=== PATIENT | female | born 1960 | race Caucasian/White ===

== ENCOUNTER → 2022-05-11 | Outpatient (CLI) | payer OTHER ==
[2022-05-11 14:33] LABS: Basophils # (A) 0.04 X 10*3/uL (0.00-0.10); Basophils % (A) 0.6 %; Eosinophils # (A) 0.44 X 10*3/uL (0.04-0.35); Eosinophils % (A) 6.1 %; HCT 42.4 % (37.2-46.3); HGB 13.3 g/dL (12.0-15.0); Immature Grans, Automated 0.4 %; Lymphocytes # (A) 1.57 X 10*3/uL (0.90-5.00); Lymphocytes % (A) 21.7 %; MCH 29.7 pg (27.0-32.0); MCHC 31.4 g/dL (32.0-37.0); MCV 94.6 fL (80.0-97.0); Mean Platelet Volume 10.6 fL (9.5-12.2); Monocytes # (A) 0.61 X 10*3/uL (0.20-1.00); Monocytes % (A) 8.4 %; NRBC Per 100 WBC 0 /100 WBCS (0.0-0.0); Neutrophils # (A) 4.56 X 10*3/uL (1.80-7.70); Neutrophils % (A) 62.8 %; Platelet Count 289 X 10*3/uL (140-440); RBC 4.48 X 10*6/uL (4.10-5.20); RDW 14.5 % (11.5-14.5); WBC 7.25 X 10*3/uL (4.50-10.00)
[2022-05-11 14:58] LABS: ALT 27 U/L (8-44); AST 21 U/L (13-35); African American GFR (CKD) 44.2 (60.0-200.0); Albumin 4.4 g/dL (3.8-4.9); Albumin/Globulin Ratio 1.77 (1.60-3.17); Alkaline Phosphatase 107 U/L (41-126); BUN/Creat Ratio 18.78 Ratio (12.00-20.00); Blood Urea Nitrogen 27.6 mg/dL (9.0-27.0); Calcium 9.8 mg/dL (8.7-10.3); Carbon Dioxide 23.4 mmol/L (20.0-27.5); Chloride 105 mmol/L (96-109); Chol/HDL Ratio 6.08 Ratio; Globulin 2.5 g/dL (1.6-3.3); Glucose 92 mg/dL (70-110); LDL Cholesterol,Calculated 191.8 mg/dL (0.0-131.0); Non-African American GFR(CKD) 38.1 (60.0-200.0); Potassium 4.7 mmol/L (3.5-5.5); Sodium 142 mmol/L (135-145); Total Protein 6.9 g/dL (6.2-8.2)
== END | disposition home or self-care (01) ==
LOC: LABWHC1 07:23
PROVIDERS: ATTEND Family Medicine
DX: E55.9 Vitamin D deficiency, unspecified (principal); E03.9 Hypothyroidism, unspecified; E78.5 Hyperlipidemia, unspecified; R73.9 Hyperglycemia, unspecified
CPT/HCPCS: 36415; 80053; 80061; 82306; 83036; 84439; 84443; 85025

== ENCOUNTER → 2023-01-23 | Outpatient (CLI) | payer OTHER ==
[2023-01-23 11:31] LABS: Chol/HDL Ratio 3.78 Ratio; LDL Cholesterol,Calculated 97.9 mg/dL (0.0-131.0)
[2023-01-23 11:59] LABS: ALT 56 U/L (8-44); AST 42 U/L (13-35); Albumin 4.5 d/dL (3.8-4.9); Albumin/Globulin Ratio 2.05 Ratio (1.60-3.17); Alkaline Phosphatase 141 U/L (41-126); BUN/Creat Ratio 19.67 Ratio (12.00-20.00); Blood Urea Nitrogen 29.5 mg/dL (9.0-27.0); Calcium 10.3 mg/dL (8.7-10.3); Carbon Dioxide 24.5 mmol/L (21.6-31.8); Chloride 106 mmol/L (96-109); Globulin 2.2 d/dL (1.6-3.3); Glucose 98 mg/dL (70-110); Potassium 5.5 mmol/L (3.5-5.5); Sodium 141 mmol/L (135-145); Total Bilirubin 0.4 mg/dL (0.3-1.2); Total Protein 6.7 d/dL (6.2-8.2)
== END | disposition home or self-care (01) ==
LOC: LABWHC1 07:08
PROVIDERS: ATTEND Family Medicine
DX: E03.9 Hypothyroidism, unspecified (principal); E78.5 Hyperlipidemia, unspecified
CPT/HCPCS: 36415; 80053; 80061; 84439; 84443

== ENCOUNTER → 2023-07-30 | Outpatient (CLI) | payer BC ==
[2023-07-30 12:50] LABS: Basophils # (A) 0.04 X 10*3/uL (0.00-0.10); Basophils % (A) 0.7 %; Eosinophils # (A) 0.44 X 10*3/uL (0.04-0.35); Eosinophils % (A) 7.2 %; HCT 41.9 % (37.2-46.3); HGB 13.6 g/dL (12.0-15.0); Lymphocytes # (A) 1.24 X 10*3/uL (0.90-5.00); Lymphocytes % (A) 20.2 %; MCH 31.1 pg (27.0-32.0); MCHC 32.5 g/dL (32.0-37.0); MCV 95.7 FL (80.0-97.0); Monocytes # (A) 0.52 X 10*3/uL (0.20-1.00); Monocytes % (A) 8.5 %; NRBC Per 100 WBC 0 X 10*3/uL (0.00-0.01); Neutrophils # (A) 3.89 X 10*3/uL (1.80-7.70); Neutrophils % (A) 63.1 %; Platelet Count 242 X 10*3/uL (140-440); RBC 4.38 X 10*6/uL (4.10-5.20); RDW 14.3 % (11.5-14.5); WBC 6.15 X 10*3/uL (4.50-10.00)
[2023-07-30 13:31] LABS: BUN/Creat Ratio 25.27 Ratio (12.00-20.00); Blood Urea Nitrogen 37.9 mg/dL (9.0-27.0); Chol/HDL Ratio 3.66 Ratio; Glucose 98 mg/dL (70-110); LDL Cholesterol,Calculated 80.7 mg/dL (0.0-131.0)
[2023-07-30 13:32] LABS: ALT 33 U/L (8-44); AST 22 U/L (13-35); Albumin 4.4 g/dL (3.8-4.9); Alkaline Phosphatase 126 U/L (41-126); Calcium 9.7 mg/dL (8.7-10.3); Carbon Dioxide 22.5 mmol/L (21.6-31.8); Chloride 105 mmol/L (96-109); Globulin 2.1 g/dL (1.6-3.3); Potassium 5.2 mmol/L (3.5-5.5); Sodium 140 mmol/L (135-145); T4, Free (Free Thyroxine) 1.53 ng/dL (0.80-1.80); Total Bilirubin 0.3 mg/dL (0.3-1.2); Total Protein 6.5 g/dL (6.2-8.2)
== END | disposition home or self-care (01) ==
LOC: LABWHC1 07:01
PROVIDERS: ATTEND Family Medicine
DX: Z00.00 Encounter for general adult medical examination without abnormal findings (principal); E55.9 Vitamin D deficiency, unspecified; E78.5 Hyperlipidemia, unspecified; E03.9 Hypothyroidism, unspecified; I63.9 Cerebral infarction, unspecified
CPT/HCPCS: 36415; 80053; 80061; 82306; 83036; 84439; 84443; 85025

== ENCOUNTER 2023-10-04 09:00 | Day surgery (SDC) | payer BC ==
[2023-10-02 13:10] VITALS: BMI 37.2
[~2023-10-04 09:00] MED LIST: EMPTY BAG 1 BAG with SODIUM CHLORIDE 0.9% 1,000 ML IV SCH
[2023-10-04] MEDS: SODIUM CHLORIDE 0.9% 1,000 ML IV ONE (09:15)
[2023-10-04 09:40] VITALS: RESP 16; TEMP 97.9
[2023-10-04 09:42] LABS: Basophils % (A) 1 %; Eosinophils # (A) 0.4 k/uL (0-0.7); Eosinophils % (A) 6 %; HCT 41.6 % (34.0-46.0); HGB 13.6 gm/dL (11.4-16.0); Lymphocytes # (A) 1.6 k/uL (1.0-4.8); Lymphocytes % (A) 23 %; MCH 30.5 pg (25.0-35.0); MCHC 32.8 g/dL (31.0-37.0); MCV 92.9 fL (80.0-100.0); Mean Platelet Volume 8.2; Monocytes # (A) 0.4 k/uL (0-1.0); Monocytes % (A) 6 %; Neutrophils # (A) 4.4 k/uL (1.3-7.7); Neutrophils % (A) 62 %; Platelet Count 242 k/uL (150-450); RBC 4.48 m/uL (3.80-5.40); WBC 7.1 k/uL (3.8-10.6)
[2023-10-04 09:55] LABS: African American GFR (CKD) 50 (>60 ml/min/1.73 sqM); Anion Gap 10 mmol/L; Blood Urea Nitrogen 38 mg/dL (7-17); Calcium 9.9 mg/dL (8.4-10.2); Carbon Dioxide 19 mmol/L (22-30); Chloride 109 mmol/L (98-107); Glucose 98 mg/dL (74-99); Non-African American GFR(CKD) 44 (>60 ml/min/1.73 sqM); Potassium 4.9 mmol/L (3.5-5.1); Sodium 138 mmol/L (137-145)
[2023-10-04] MEDS ORDERED: VERAPAMIL 2.5 MG/ML 2 ML AMP ONE (10:39)
[2023-10-04] MEDS ORDERED: LIDOCAINE 1% INJ 10MG/ML (20 ML MDV) ONE (10:39)
[2023-10-04] MEDS ORDERED: HEPARIN SODIUM 1,000 UN/ML (10ML VL) ONE (10:39)
[2023-10-04] MEDS: LIDOCAINE 1% INJ 10MG/ML (30 ML VIAL-PF) SQ ONE (10:47)
[2023-10-04] MEDS: MIDAZOLAM 2 MG/2 ML VIAL IVP ONE (10:48)
[2023-10-04] MEDS: VERAPAMIL SYRINGE (5 MG/10 ML) INTRAARTER ONE (10:49)
[2023-10-04] MEDS: HEPARIN SODIUM 1,000 UN/ML (10ML VL) IVP ONE (10:49)
[2023-10-04] MEDS: IOPAMIDOL-250 100ML BTL INTRAARTER ONE (11:02)
--- NOTE | 2023-10-04 11:20 | P.OP ---
Date of Procedure: 10/04/23 Description of Procedure: Preoperative diagnosis: Ihsan 3 peripheral arterial disease bilateral lower extremity Postoperative diagnosis: Same Procedure: Ultrasound-guided left radial artery access Placement of catheter in infrarenal abdominal aorta, selective second order, from radial approach Aortogram with bilateral lower extremity runoffs Moderate conscious sedation with personal monitoring certified RN administration and personal hemodynamic monitoring for 19 minutes Surgeon: Elsa Winslow D.O. EBL: Less than 5 cc IV fluids: See records Urine output: Not measured Drains: None Complications: None immediately apparent Condition: Stable to recovery Operative indication and findings: Patient is 62 a-year-old with peripheral vascular disease. On workup and evaluation was found to have abnormal ABIs prompting recommendations for an angiogram. Risks and benefits including but not limited to bleeding, infection, injury to the vessel, stroke, cardiopulmonary risks and ischemic changes to the extremities were discussed. They seemingly understood this willing to proceed. Procedure in detail: Patient was taken to the special suite and placed in supine position. The left upper extremity was prepped and draped in usual sterile fashion. A preprocedural timeout was performed, all parties were in agreement. Using the ultrasound, the radial artery was identified. The skin overlying was anesthetized with 1% lidocaine plain. The artery was patent without significant calcific disease and a permanent image was stored. Under direct visualization, the artery was accessed and Seldinger technique was used to place a 5 slender sheath. Catheters and wires were then used to selectively place a catheter across the subclavian, into the aortic arch and then selectively in the descending thoracic aorta and down into the abdominal aorta. Aortogram was performed. Catheter was then advanced to the level of the iliac bifurcation. A bilateral lower extremity step-off was performed. After satisfactory images, catheters and wires were removed. The sheath was removed and a TR band was placed. Angiographic interpretation: The aorta appears normal in course and caliber. Visualized portions of the celiac, superior mesenteric and renal arteries appeared patent without significant disease. Bilateral common, internal and external iliac arteries appeared patent without significant disease. The common femoral arteries bilaterally appear patent without significant or obvious disease. On the right, the superficial femoral artery occludes shortly after its takeoff. There is a rich collateral network via the profunda and reconstitution of the popliteal artery at the level of the P1 segment. The popliteal artery and infrapopliteal arteries appear patent. There are 3 vessels at the ankle. On the left, the superficial femoral artery is patent but occludes shortly after its takeoff. Again VA rich collateral network of the profunda, there is reconstitution of the very distal superficial femoral artery. There are evidence of disease and collaterals through the popliteal artery. The below- knee popliteal artery appears patent without significant disease. Infrapopliteal vessels appear patent without significant disease. There is three-vessel at the ankle. Plan - Discharge Summary Discharge Rx Participant: No New Discharge Prescriptions: No Action Levothyroxine Sodium [Synthroid] 112 mcg PO DAILY Aspirin [Adult Low Dose Aspirin EC] 81 mg PO DAILY cilostazoL [Pletal] 100 mg PO BID Lisinopril-Hctz 20-12.5 mg [Zestoretic 20-12.5] 1 tab PO DAILY Discharge Medication List Aspirin [Adult Low Dose Aspirin EC] 81 mg PO DAILY 10/02/23 [History] Levothyroxine Sodium [Synthroid] 112 mcg PO DAILY 10/02/23 [History] Lisinopril-Hctz 20-12.5 mg [Zestoretic 20-12.5] 1 tab PO DAILY 10/02/23 [History] cilostazoL [Pletal] 100 mg PO BID 10/02/23 [History] Follow up Appointment(s)/Referral(s): Elsa Winslow DO [STAFF PHYSICIAN] - 2 Weeks (PLEASE CALL DR PARKS OFFICE ON SATURDAY TO MAKE FOLLOW UP APPOINTMENT (OFFICE IS CLOSED TODAY -SATURDAY)) Patient Instructions/Handouts: Moderate Sedation (DC), Angiogram (DC), After Radial Heart Catheterization (GEN) Activity/Diet/Wound Care/Special Instructions: No driving for two days Ok to shower tomorrow but no baths, pools, lakes, doing dishes by hand for five days. Signs of infection IE: fever, rash, drainage from puncture site, swelling go to ER/doctor for immediate evaluation. Avoid using right wrist/hand to bend, flex, lift greater than 5 lbs for five days. For Heavy Bleeding of puncture site apply firm direct pressure and return to ER. Do not attempt to drive self. low sodium/low fat diet medications as directed by Acute Specialist Discharge Disposition: HOME SELF-CARE
[2023-10-04 14:59] VITALS: BP 145/67; PULSE 80
--- NOTE | 2023-10-07 13:25 | IR ---
EXAMINATION TYPE: IR angio abdominal w runoff DATE OF EXAM: 10/04/2023 COMPARISON: NONE HISTORY: Fluoroscopy time. Fluoroscopy was provided to the referring clinician.
== END 2023-10-04 14:33 | disposition home or self-care (01) ==
LOC: CATHCVL 09:00
PROVIDERS: ATTEND Surgery
DX: I70.213 Atherosclerosis of native arteries of extremities with intermittent claudication, bilateral legs (principal); I10 Essential (primary) hypertension; I65.21 Occlusion and stenosis of right carotid artery; Z79.02 Long term (current) use of antithrombotics/antiplatelets; Z79.82 Long term (current) use of aspirin; Z79.899 Other long term (current) drug therapy
CPT/HCPCS: 36200; 75625; 75716; 76937; 80048; 85025; 99152; C1769 ×2; C1894; J2250; J2001; J1644; Q9966

== ENCOUNTER → 2024-02-12 | Outpatient (CLI) | payer BC, SELFPAY ==
[2024-02-12 11:10] LABS: ALT 32 U/L (8-44); AST 25 U/L (13-35); Albumin 4.4 g/dL (3.8-4.9); Alkaline Phosphatase 121 U/L (41-126); BUN/Creat Ratio 22.29 Ratio (12.00-20.00); Blood Urea Nitrogen 31.2 mg/dL (9.0-27.0); Calcium 9.2 mg/dL (8.7-10.3); Carbon Dioxide 23.7 mmol/L (21.6-31.8); Chloride 104 mmol/L (96-109); Chol/HDL Ratio 3.86 Ratio; Globulin 2.1 g/dL (1.6-3.3); Glucose 85 mg/dL (70-110); LDL Cholesterol,Calculated 91.2 mg/dL (0.0-131.0); Sodium 138 mmol/L (135-145); T4, Free (Free Thyroxine) 1.28 ng/dL (0.80-1.80); Total Bilirubin 0.3 mg/dL (0.3-1.2); Total Protein 6.5 g/dL (6.2-8.2)
== END | disposition home or self-care (01) ==
LOC: LABWHC1 06:54
PROVIDERS: ATTEND Family Medicine
DX: Z00.00 Encounter for general adult medical examination without abnormal findings
CPT/HCPCS: 36415; 80053; 80061; 82306; 82607; 84439; 84443

== ENCOUNTER → 2024-03-27 | Outpatient (CLI) | payer BC ==
--- NOTE | 2024-03-27 15:46 | CA ---
Transthoracic Echo Report Name: Savannah Ospina Age: 63 Gender: F : 1960 Exam Date: 03/27/2024 08:41 Exam Location: [facility] Ht (in): 63 Wt (lb): 212 Ordering Physician: Good Faith DO Attending/Referring Phys: Elsa Winslow DO Machine Cloth Examiner Marie Balderas RDCS Procedure CPT: Indications: I73.9 PERIPHERAL VASCULAR DISEASE, UNSPECIFIED Cardiac Hx: Technical Quality: Fair Contrast 1: Total Dose (mL): Contrast 2: Total Dose (mL): MEASUREMENTS (Male / Female) Normal Values 2D ECHO LV Diastolic Diameter PLAX 3.5 cm 4.2 - 5.9 / 3.9 - 5.3 cm LV Systolic Diameter PLAX 2.4 cm IVS Diastolic Thickness 1.4 cm 0.6 - 1.0 / 0.6 - 0.9 cm LVPW Diastolic Thickness 1.4 cm 0.6 - 1.0 / 0.6 - 0.9 cm LV Relative Wall Thickness 0.8 RV Internal Dim ED PLAX 1.4 cm LA Systolic Diameter LX 3.0 cm 3.0 - 4.0 / 2.7 - 3.8 cm LV Diastolic Volume MOD BP 45.7 cm??? 67 - 155 / 56 - 104 cm??? LV Systolic Volume MOD BP 18.3 cm??? 22 - 58 / 19 - 49 cm??? LV Ejection Fraction MOD BP 60.0 % >= 55 % LV Cardiac Index MOD BP 1232.7 cm???/min???m??? LV Diastolic Volume MOD 4C 47.4 cm??? LV Systolic Volume MOD 4C 17.4 cm??? LV Ejection Fraction MOD 4C 63.3 % LV Cardiac Index MOD 4C 1347.1 cm???/min???m??? LV Diastolic Length 4C 8.2 cm LV Systolic Length 4C 6.5 cm LV Diastolic Volume MOD 2C 40.4 cm??? LV Systolic Volume MOD 2C 18.2 cm??? LV Ejection Fraction MOD 2C 55.0 % LV Cardiac Index MOD 2C 997.9 cm???/min???m??? LV Diastolic Length 2C 7.4 cm LV Systolic Length 2C 7.0 cm M-MODE Aortic Root Diameter MM 3.3 cm LA Systolic Diameter MM 3.2 cm LA Ao Ratio MM 1.0 AV Cusp Separation MM 1.7 cm DOPPLER AV Peak Velocity 183.5 cm/s AV Peak Gradient 13.5 mmHg AV Mean Velocity 128.3 cm/s AV Mean Gradient 7.9 mmHg AV Velocity Time Integral 37.9 cm LVOT Peak Velocity 186.1 cm/s LVOT Peak Gradient 13.8 mmHg LVOT Velocity Time Integral 42.0 cm Mitral E Point Velocity 63.7 cm/s Mitral A Point Velocity 84.2 cm/s Mitral E to A Ratio 0.8 MV Deceleration Time 263.7 ms MV E' Velocity 6.7 cm/s Mitral E to MV E' Ratio 9.5 TR Peak Velocity 172.1 cm/s TR Peak Gradient 11.9 mmHg Right Ventricular Systolic Press 16.9 mmHg FINDINGS Left Ventricle Left ventricular ejection fraction is estimated at 60-65 %. Moderately increased septal wall thickness. Moderately increased posterior wall thickness. Normal left ventricular systolic function with no obvious regional wall motion abnormalities. Left ventricular cavity size normal. Increased LVOT velocity, 1.86 m/s. Right Ventricle Normal right ventricular size. Right ventricular systolic pressure within normal limits. Right Atrium Normal right atrial size. Left Atrium Normal left atrial size. Mitral Valve Structurally normal mitral valve. Trace mitral regurgitation. No mitral stenosis. Mitral annular calcification. Aortic Valve Trileaflet aortic valve. No aortic valve stenosis or regurgitation. Tricuspid Valve Structurally normal tricuspid valve. Trace to mild tricuspid regurgitation. No tricuspid stenosis. Pulmonic Valve Structurally normal pulmonic valve. Trace pulmonic regurgitation. No pulmonic stenosis. Pericardium No pericardial or pleural effusion. Aorta Normal size aortic root and proximal ascending aorta. CONCLUSIONS Left ventricular ejection fraction 60-65% Moderately increased left ventricular wall thickness Mild LVOT gradient maximum velocity 1.8 beers per second RVSP 17 Trace mitral regurgitation Mild mitral calcification Trace to mild tricuspid regurgitation Previewed by: Dr. Twin Whatley DO (Electronically Signed) Final Date: 27 March 2024 15:45
--- NOTE | 2024-03-27 16:09 | CA ---
Exercise Stress Test Report Name: Savannah Ospina Exam Date: 03/27/2024 10:30 Exam Location: [facility] Ht (in): 63 Wt (lb): 212 BSA: 1.98 Ordering Phys: Good Faith DO Referring Phys: Elsa Winslow DO Technologist: Miguelito Woodward Age: 63 Gender: F : 1960 Procedure CPT: Indications: I73.9 PERIPHERAL VASCULAR DISEASE, UNSPECIFIED ICD-10 Codes: Patient History: HYPERCHOLESTEROLEMIA, FAMILY HX OF HEART DISEASE, PRIOR SMOKER Medications: LISINOPRIL Meds past 24 hrs: Pretest Chest Pain: STRESS TEST Yuri Protocol Exercise Duration (min:sec): 05:[address] Depressions (mm): Angina Score: Enriquez Score: Resting HR (bpm): 91 Peak HR (bpm): 134 Resting BP (mmHg): 138 / 91 Peak BP (mmHg): 180 / 75 MPHR: 157 Target HR: 133 % MPHR: 85 METS: 6.6 Total Dose: Peak Dose: Atropine: Double Product: 28189 BP Response: Stress Termination: MAX EXERTION/TARGET HR Stress Symptoms: NO SYMPTOMS Stress Summary: ECG ANALYSIS Resting ECG: Stress ECG: CONCLUSIONS Patient underwent exercise stress EKG with a Yuri protocol treadmill stress test. Patient exercised into Stage 2 for a total of 5 minutes and 11 seconds reaching a total of 6.6 METS. Patient's maximum heart rate was 134 which represented 85% age- predicted maximum heart rate. Stress EKG findings: At baseline patient's EKG showed normal sinus rhythm, normal axis, no significant ST or T wave abnormalities. At peak exercise, EKG showed no significant change from baseline. Conclusions: 1. Normal EKG response to exercise without evidence of inducible ischemia. 2. Fair exercise capacity. Dr. Twin Whatley DO (Electronically Signed) Final Date: 27 March 2024 16:08
== END | disposition home or self-care (01) ==
LOC: RADECHMAIN 08:21
PROVIDERS: ATTEND Family Medicine
DX: I73.9 Peripheral vascular disease, unspecified
CPT/HCPCS: 93017; 93306

== ENCOUNTER → 2024-04-29 | Outpatient (CLI) | payer BC ==
[2024-04-29 12:41] LABS: INR 0.8 (<1.2); Partial Thromboplastin Time 23.6 sec (22.0-30.0); Prothrombin Time 9.5 sec (10.0-12.5)
[2024-04-29 15:12] LABS: Basophils # (A) 0.03 X 10*3/uL (0.00-0.10); Basophils % (A) 0.3 %; Eosinophils # (A) 0.45 X 10*3/uL (0.04-0.35); Eosinophils % (A) 5.2 %; HGB 13.2 g/dL (12.0-15.0); Lymphocytes # (A) 1.72 X 10*3/uL (0.90-5.00); Lymphocytes % (A) 19.7 %; MCH 31.7 pg (27.0-32.0); MCHC 32.2 g/dL (32.0-37.0); MCV 98.3 FL (80.0-97.0); Mean Platelet Volume 10.3 FL (9.5-12.2); NRBC Per 100 WBC 0 X 10*3/uL (0.00-0.01); Neutrophils # (A) 5.77 X 10*3/uL (1.80-7.70); Neutrophils % (A) 66.3 %; Platelet Count 298 X 10*3/uL (140-440); RBC 4.17 X 10*6/uL (4.10-5.20); RDW 13.9 % (11.5-14.5); WBC 8.71 X 10*3/uL (4.50-10.00)
== END | disposition home or self-care (01) ==
LOC: LABPAT 11:58
PROVIDERS: ATTEND Surgery
DX: Z01.818 Encounter for other preprocedural examination (principal)
CPT/HCPCS: 36415; 85025; 85610; 85730; 86850; 86900; 86901; 93005

== ENCOUNTER 2024-04-30 05:41 | Inpatient (IN) | payer BC ==
[2024-04-30] MEDS ORDERED: LIDOCAINE 1% (10MG/ML) FOR IV START INTRADERMA PRN (05:46)
[2024-04-30] MEDS ORDERED: MIDAZOLAM 2 MG/2 ML VIAL IV PRN (05:46)
[2024-04-30] MEDS ORDERED: fentaNYL (PF) 50 MCG/ML 2 ML AMP IVP PRN (05:46)
[2024-04-30] MEDS ORDERED: HYDROmorphone 0.5 MG/0.5 ML SYRINGE IVP PRN (05:46)
[2024-04-30] MEDS: IV FLUID CONTINUATION 1,000 ML IV ONE ×2 (06:30→06:45)
[2024-04-30] MEDS: LACTATED RINGERS 1,000 ML IV SCH (06:30)
[2024-04-30] MEDS: ONDANSETRON 4 MG/2 ML VIAL IVP ONE (06:51)
[2024-04-30] MEDS: DEXAMETHASONE SOD PHOSPHATE 4 MG/ML 1 ML VIAL IV ONE (06:51)
--- NOTE | 2024-04-30 07:15 | P.HPIHPCON ---
History of Present Illness H&P Date: 04/30/24 Savannah is a 63-year-old female with lifestyle limiting claudication that is severe and has femoral-popliteal disease that initially was attempted to be revascularized via endovascular methods which was unsuccessful. Due to this she was recommended undergo a bypass. She presents today for this. She denies any changes since her last visit in the office Consent for Procedure: I have explained the operation/procedure to the patient, including the risks, benefits, side effects, alternative therapies (including not receiving the proposed treatment or service), the likelihood of the patient achieving his/her goals, and potential recuperation problems for the procedure/sedation/analgesia, as well as any blood products, if indicated. I also explained to the patient the risks, benefits and side effects of the alternatives, as well as the risks related to not receiving the proposed procedure, care, treatment, or services. Past Medical History Past Medical History: Hyperlipidemia, Hypertension, Osteoarthritis (OA), Thyroid Disorder, Vascular Disorder Additional Past Medical History / Comment(s): PVD History of Any Multi-Drug Resistant Organisms: None Reported Additional Past Surgical History / Comment(s): CALLY. CAROTID ENDARTERECTOMY Past Anesthesia/Blood Transfusion Reactions: No Reported Reaction Smoking Status: Former smoker - Past Family History Mother Family Medical History: No Reported History Brother(s) Additional Family Medical History / Comment(s): QUAD CABG Medications and Allergies Home Medications Medication Instructions Recorded Confirmed Type Aspirin [Adult Low Dose Aspirin EC] 81 mg PO DAILY 10/02/23 04/27/24 History Levothyroxine Sodium [Synthroid] 112 mcg PO DAILY 10/02/23 04/27/24 History Lisinopril-Hctz 20-12.5 mg 1 tab PO HS 10/02/23 04/27/24 History [Zestoretic 20-12.5] cilostazoL [Pletal] 100 mg PO BID 10/02/23 04/27/24 History Atorvastatin [Lipitor] 80 mg PO HS 10/29/23 04/27/24 History Ibuprofen [Advil] 200 mg PO DAILY PRN 10/29/23 04/27/24 History Dextroamphetamine/Amphetamine 30 mg PO DAILY 04/27/24 04/27/24 History [Adderall] Allergies Allergy/AdvReac Type Severity Reaction Status Date / Time No Known Allergies Allergy Verified 04/30/24 06:02 Surgical - Exam Vital Signs Temp Pulse Resp BP Pulse Ox 97.9 F 89 16 157/84 96 04/30/24 06:14 04/30/24 06:14 04/30/24 06:14 04/30/24 06:14 04/30/24 06:14 General is a pleasant cooperative obese female in no acute distress. HEENT is n ormocephalic, atraumatic, extraocular motion intact. Heart appears regular in rate and rhythm. Lungs are clear. Abdomen is soft obese nontender. Extremities show no clubbing, cyanosis or edema. Bilateral feet are warm and dry. Assessment and Plan Assessment: Lifestyle limiting claudication and peripheral arterial disease Obesity Plan: We will go forward with the plan today for a left femoral to below-knee popliteal bypass with CryoVein. Risks and benefits of the procedure were discussed with the patient previously including but not limited to bleeding, infection, injury to the vessel, cardiopulmonary concerns. She seemingly understands and is willing to proceed.
--- NOTE | 2024-04-30 07:16 | P.ANPRN ---
Procedure Note - Anesthesia - Invasive Line Left Arterial Line Time Out Performed: Yes Date of Procedure: 04/30/24 Time of Procedure: 07:00 Location of Patient: PreOp Preparation: Sterile Prep Arterial Line Location: Radial Ultrasound Used: Yes Purpose - Visualization and Identification of Vasculature: Yes Image Stored and Saved: Yes Narrative: Invasive line placement per sterile protocol utilized. AttemptX1
[2024-04-30] MEDS ORDERED: NEOSTIGMINE 1 MG/ML 10 ML VIAL ONE (07:26)
[2024-04-30] MEDS ORDERED: LIDOCAINE 1% INJ 10MG/ML (20 ML MDV) ONE (07:26)
[2024-04-30] MEDS ORDERED: HEPARIN SODIUM,PORCINE 10,000 UNIT/ML 1 ML VIAL ONE (07:26)
[2024-04-30] MEDS ORDERED: GLYCOPYRROLATE 0.2 MG/ML 2 ML VIAL ONE (07:26)
[2024-04-30] MEDS ORDERED: fentaNYL (PF) 50 MCG/ML 2 ML AMP ONE (07:26)
[2024-04-30] MEDS ORDERED: PHENYLEPHRINE 10 MG/ML VIAL ONE (07:26)
[2024-04-30] MEDS ORDERED: MIDAZOLAM 2 MG/2 ML VIAL ONE (07:26)
[2024-04-30] MEDS ORDERED: CALCIUM CHLORIDE 100 MG/ML 10 ML SYRINGE ONE (07:26)
[2024-04-30] MEDS ORDERED: SODIUM BICARB 8.4% 50 ML SYR (1 MEQ/ML) ONE (07:26)
[2024-04-30] MEDS ORDERED: PROPOFOL 10 MG/ML 20 ML VIAL IV ONE (07:26)
[2024-04-30] MEDS ORDERED: ROCURONIUM 10 MG/ML (5 ML VIAL) IV ONE (07:26)
[2024-04-30] MEDS ORDERED: SUCCINYLCHOLINE CHLORIDE 200 MG/10 ML VIAL IV ONE (07:26)
[2024-04-30 07:32] LABS: African American GFR (CKD) 55 (>60 ml/min/1.73 sqM); Anion Gap 10 mmol/L; Blood Urea Nitrogen 34 mg/dL (7-17); Calcium 9.3 mg/dL (8.4-10.2); Carbon Dioxide 19 mmol/L (22-30); Chloride 108 mmol/L (98-107); Glucose 90 mg/dL (74-99); Non-African American GFR(CKD) 47 (>60 ml/min/1.73 sqM); Sodium 137 mmol/L (137-145)
[2024-04-30 07:43] LABS: Potassium 5.2 mmol/L (3.5-5.1)
[2024-04-30] MEDS: SODIUM CHLORIDE 0.9% 1,000 ML IV ONE ×2 (08:18)
[2024-04-30] MEDS: HEPARIN SODIUM,PORCINE 10,000 UNIT in SODIUM CHLORIDE 0.9% 1,000 ML IRRIGATION ONE ×2 (08:23→08:26)
[2024-04-30] MEDS: ceFAZolin 4,000 MG in SODIUM CHLORIDE 0.9% 1,000 ML IRRIGATION ONE (08:24)
[2024-04-30] MEDS: THROMBIN (BOVINE) 5,000 UNIT VIAL TOPICAL ONE ×2 (08:56)
[2024-04-30] MEDS: SODIUM CHLORIDE 0.9% 50 ML with ceFAZolin 2,000 MG IV ONE (11:31)
[2024-04-30] MEDS: hydrALAZINE HCL 20 MG/ML 1 ML VIAL IVP STA (13:07)
--- NOTE | 2024-04-30 13:48 | P.OP ---
Date of Procedure: 04/30/24 Description of Procedure: I preoperative diagnosis: Lifestyle-limiting peripheral vascular disease, femoral-popliteal occlusive disease Postoperative diagnosis: Same Procedure: Left femoral cutdown and endarterectomy Left below-knee popliteal cutdown and endarterectomy Left femoral to distal popliteal bypass with CryoVein Surgeon: Elsa Winslow D.O. Corporate Compliance Director: Obdulia EBL: 50 cc IV fluids: See records Drains: None, Prevena incisional wound vacs Urine output: 425 cc Complications: None Condition: Stable, extubated in the OR to PACU Operative indication and findings: The patient is a 63-year-old female with lifestyle limiting claudication worse in her left leg. Initial attempts were made for endovascular revascularization were unsuccessful therefore a bypass was recommended.. Risks and benefits were discussed including but not limited to bleeding, infection, limb loss, heart attack, poor wound healing and . The patient seemingly understood and was willing to proceed. Procedure in detail: Patient taken to the operative suite placed in supine position and intubated. A Winslow catheter was placed. The abdomen and left lower extremity prepped and draped in usual sterile fashion. A preprocedure timeout was performed and all parties are in agreement. An oblique incision was made in the left groin with the scalpel. It was deepened through subcutaneous tissues with electrocautery. The encountered lymphatics were ligated and divided. The femoral sheath was opened sharply. The common femoral artery was dissected free circumferentially. The dissection was extended proximally to the level of the inguinal ligament, and distally to include the superficial femoral and profunda femoris arteries. She had a relatively shortened common femoral artery therefore the distal femoral artery and proximal superficial femoral artery were utilized. They were encircled with vessel loops. Attention was then turned towards the below-knee incision. It was made in the medial condyle and deepened through the fascia. There was significant depth of the soft tissue in order to get to the popliteal artery was identified the popliteal vein was retracted. Vessel loops were placed after careful circumferential dissection. This was done at the level of the distal popliteal artery encircling also the anterior tibial and tibioperoneal trunk distally.. A tunneler was then placed in the subsartorial plane. Femoral at that point the patient was heparinized and ACT is were followed. Once heparinization was adequate, flow was occluded through the vessel. An 11 blade was utilized and arteriotomy is made the Hopkins-Pinedo scissors was utilized to enlarge the arteriotomy. This was carried down again onto the superficial femoral artery. A femoral endarterectomy was performed including the superficial femoral and profunda femoris arteries. All were allowed to backbleed. An anastomosis was then created with the previously treated and flushed CryoVein using 6-0 Prolene between the femoral artery and the saphenous vein. \The vein was marked and passed through the tunneler. The tunneler was removed. At that point the arteriotomy of the popliteal segment was performed. There was endarterectomy performed at this level of the distal popliteal artery. There was adequate appearing backbleeding from the anterior tibial and TP trunk. The vein was cut to size and spatulated. Utilizing 6-0 Prolene an anastomosis was created. At this point all anastomoses were completed and flow was resumed through the bypass graft. Hemostasis was achieved with interrupted sutures of 6-0 Prolene and Surgicel. A Doppler was utilized to confirm multiphasic flow distally to the anastomosis. There was a palpable pulse at the ankle. The wound was copiously irrigated with antibiotic solution. The femoral sheath and The popliteal fascia was reapproximated with interrupted sutures of 3-0 Vicryl. The subcuticular tissue was reapproximated with 3-0 Vicryl. The skin was closed with running sutures of 4-0 Monocryl. Incisional wound VAC dressings were placed.
[2024-04-30] MEDS ORDERED: MORPHINE SULFATE 2 MG/ML SYRINGE IVP PRN (13:51)
[2024-04-30] MEDS: ONDANSETRON 4 MG/2 ML VIAL IVP PRN (17:06)
[2024-05-01] MEDS: HYDROcodone/APAP 5-325MG 1 EACH TAB PO PRN (03:41)
[2024-05-01 08:10] LABS: HCT 35.1 % (34.0-46.0); HGB 11.8 gm/dL (11.4-16.0); MCH 32.2 pg (25.0-35.0); MCHC 33.5 g/dL (31.0-37.0); Mean Platelet Volume 8.3; Platelet Count 260 k/uL (150-450); RBC 3.66 m/uL (3.80-5.40); WBC 10.5 k/uL (3.8-10.6)
[2024-05-01 08:28] LABS: African American GFR (CKD) 52 (>60 ml/min/1.73 sqM); Anion Gap 6 mmol/L; Blood Urea Nitrogen 22 mg/dL (7-17); Calcium 9.4 mg/dL (8.4-10.2); Carbon Dioxide 27 mmol/L (22-30); Chloride 104 mmol/L (98-107); Glucose 98 mg/dL (74-99); Non-African American GFR(CKD) 45 (>60 ml/min/1.73 sqM); Potassium 4.6 mmol/L (3.5-5.1); Sodium 137 mmol/L (137-145)
[2024-05-01] MEDS ORDERED: NON FORMULARY DRUG (Aspirin [Adult Low Dose Aspirin Ec] 81 MG Tablet) PO SCH (09:00)
[2024-05-01] MEDS: LEVOTHYROXINE 112 MCG TAB PO SCH (09:12)
[2024-05-01] MEDS: CLOPIDOGREL 75 MG TAB PO SCH (09:12)
[2024-05-01] MEDS: ASPIRIN 81 MG PO SCH (09:12)
[2024-05-01] MEDS: cilostazoL 100 MG TAB PO SCH (09:12)
[2024-05-01] MEDS: NON FORMULARY DRUG (Dextroamphetamine/Amphetamine [Adderall] 30 MG Tablet) PO SCH (09:13)
[2024-05-01] MEDS: SODIUM CHLORIDE 0.9% 500 ML 500 ML IV ONE (14:07)
--- NOTE | 2024-05-01 14:18 | P.PN ---
Subjective Progress Note Date: 05/01/24 Principal diagnosis: Left femoral-popliteal occlusive disease Patient is seen and examined today as a follow-up. She is postop day #1 for left femoral cutdown and endarterectomy, left below the knee popliteal cutdown and endarterectomy and left femoral to distal popliteal bypass with CryoVein. Patient states she has no pain. Her only complaint is she is feeling dizzy. She did have some nausea yesterday evening. This morning she is feeling better and was able to eat her breakfast. Winslow catheter has been removed. She has been up to the bathroom. Blood pressures have been a little bit on the lower side for her normal. She denies any abdominal pain, chest pain, or shortness of breath. She is afebrile. Blood pressures been 110s/70s. Apparently patient does have a history of vertigo and dizziness may be secondary to vertigo. Today's labs WBC 10.5 hemoglobin 11.8 platelet count 260,000 sodium 137 potassium 4.6 BUN 22 creatinine 1.2 glucose 98 Objective - Vital Signs Vital signs: Vital Signs Temp 98.6 F 05/01/24 11:19 Pulse 89 05/01/24 12:00 Resp 18 05/01/24 12:00 BP 117/61 05/01/24 12:00 Pulse Ox 98 05/01/24 12:00 FiO2 Intake & Output 04/30/24 05/01/24 05/01/24 18:59 06:59 18:59 Intake Total 2793 540 1100 Output Total 475 2500 Balance 2318 -1960 1100 Weight 94.2 kg Intake: IV 2553 Oral 158 390 9421 Output: Urine 425 2500 Estimated Blood Loss 50 Other: Voiding Method Indwelling Catheter Indwelling Catheter Toilet # Voids 1 - Exam General appearance: The patient is alert, oriented, appears in no acute distress. HET: Head is normocephalic and atraumatic. Pupils are equal and reactive. Neck: Supple. Heart: Regular. Lungs: Equal expansion, normal respiratory effort. Abdomen: Soft, nontender, nondistended. Extremities: Normal skin color and turgor. Left lower extremity and pedal edema. Palpable DP and PT pulse. Left groin with Prevena dressing intact with good suction. Medial aspect of left lower extremity with Prevena dressing in place with good suction. Left lower extremity warm to the touch with intact sensorimotor. Neurological: No focal deficits. Strength and sensation are grossly intact. - Labs CBC & Chem 7: 05/01/24 07:04 05/01/24 07:04 Labs: Abnormal Lab Results - Last 24 Hours (Table) 05/01/24 05/01/24 Range/Units 07:04 07:04 RBC 3.66 L (3.80-5.40) m/uL BUN 22 H (7-17) mg/dL Creatinine 1.26 H (0.52-1.04) mg/dL Assessment and Plan Assessment: 1. Postop day #1 for left femoral cutdown and endarterectomy, left below-knee popliteal cutdown and endarterectomy and left femoral to distal popliteal bypass with CryoVein 2. Claudication with femoral to popliteal occlusive disease 3. Right lower extremity peripheral arterial disease 4. History of hypertension 5. History of vertigo 6. Hyperlipidemia 7. Hypothyroidism Plan: 1. Heart healthy diet 2. Encourage ambulation 3. Keep Prevena dressings in place for 6 days 4. Pain medication as needed 5. Give 500 ml IV fluid bolus 6. Resume home medications 7. Hold lisinopril 8. Continue aspirin and Pletal 9. Add Plavix 75 mg daily 10. Medical team consulted for medical management Anticipate discharge in tomorrow. Discharge instructions reviewed with patient. The impression and plan of care has been dictated as directed. I performed a history and examination of this patient, discussed the same with the dictator. I agree with the dictator's note ,documented as a scribe. Any additional findings or plans will be noted.
--- NOTE | 2024-05-01 15:13 | P.CONS ---
History of Present Illness - Reason for Consult Consult date: 05/01/24 Medical management - Chief Complaint Severe femoral-popliteal occlusive disease - History of Present Illness 63-year-old female, with lifestyle limiting claudication worse in her left leg. Initial attempts were made for endovascular revascularization were unsuccessful therefore a bypass was recommended. Patient was admitted to the hospital for elective vascular surgery and underwent left femoral cutdown and endarterectomy, left below-knee popliteal cutdown and endarterectomy followed by left femoral to distal popliteal bypass; POD #1 Today's labs WBC 10.5 hemoglobin 11.8 platelet count 260,000 sodium 137 potassium 4.6 BUN 22 creatinine 1.2 glucose 98 Review of Systems REVIEW OF SYSTEMS: CONSTITUTIONAL: No fever, no malaise, no fatigue. HEENT: No recent visual problems or hearing problems. Denied any sore throat. CARDIOVASCULAR: No chest pain, orthopnea, PND, no palpitations, no syncope. PULMONARY: No shortness of breath, no cough, no hemoptysis. GASTROINTESTINAL: No diarrhea, no nausea, no vomiting, no abdominal pain. NEUROLOGICAL: No headaches, no weakness, no numbness. HEMATOLOGICAL: Denies any bleeding or petechiae. GENITOURINARY: Denies any burning micturition, frequency, or urgency. MUSCULOSKELETAL/RHEUMATOLOGICAL: Denies any joint pain, swelling, or any muscle pain. ENDOCRINE: Denies any polyuria or polydipsia. The rest of the 14-point review of systems is negative. Past Medical History Past Medical History: Hyperlipidemia, Hypertension, Osteoarthritis (OA), Thyroid Disorder, Vascular Disorder Additional Past Medical History / Comment(s): PVD History of Any Multi-Drug Resistant Organisms: None Reported Additional Past Surgical History / Comment(s): CALLY. CAROTID ENDARTERECTOMY Past Anesthesia/Blood Transfusion Reactions: No Reported Reaction Smoking Status: Former smoker - Past Family History Mother Family Medical History: No Reported History Brother(s) Additional Family Medical History / Comment(s): QUAD CABG Medications and Allergies Home Medications Medication Instructions Recorded Confirmed Type Aspirin [Adult Low Dose Aspirin EC] 81 mg PO DAILY 10/02/23 04/27/24 History Levothyroxine Sodium [Synthroid] 112 mcg PO DAILY 10/02/23 04/27/24 History Lisinopril-Hctz 20-12.5 mg 1 tab PO HS 10/02/23 04/27/24 History [Zestoretic 20-12.5] cilostazoL [Pletal] 100 mg PO BID 10/02/23 04/27/24 History Atorvastatin [Lipitor] 80 mg PO HS 10/29/23 04/27/24 History Dextroamphetamine/Amphetamine 30 mg PO DAILY 04/27/24 04/27/24 History [Adderall] Acetaminophen Tab [Tylenol] 650 mg PO Q6HR PRN tab 05/01/24 Rx Clopidogrel [Plavix] 75 mg PO DAILY #30 tab 05/01/24 Rx Allergies Allergy/AdvReac Type Severity Reaction Status Date / Time No Known Allergies Allergy Verified 04/30/24 06:02 Physical Exam Vitals: Vital Signs Temp Pulse Resp BP Pulse Ox 05/01/24 08:20 92 18 112/66 05/01/24 07:20 97.8 F 96 18 106/73 05/01/24 03:38 98.3 F 102 H 17 112/72 95 04/30/24 23:41 98.0 F 106 H 17 112/74 98 04/30/24 19:57 98.0 F 104 H 17 104/74 97 04/30/24 15:03 91 17 117/75 100 04/30/24 13:17 75 18 153/82 99 04/30/24 13:02 73 16 172/88 98 04/30/24 12:47 71 16 163/100 99 04/30/24 12:32 82 16 159/88 100 04/30/24 12:17 96.9 F L 85 18 157/81 99 Intake and Output 04/30/24 05/01/24 05/01/24 22:59 06:59 14:59 Intake Total 780 340 Output Total 800 1700 Balance -20 -1700 340 Intake: Oral 780 340 Output: Urine 800 1700 Other: Voiding Method Indwelling Catheter Indwelling Catheter Toilet # Voids 1 Weight 94.2 kg General appearance: The patient is alert, oriented, appears in no acute distress. HET: Head is normocephalic and atraumatic. Pupils are equal and reactive. Neck: Supple. Heart: Regular. Lungs: Equal expansion, normal respiratory effort. Abdomen: Soft, nontender, nondistended. Extremities: Normal skin color and turgor. Left lower extremity and pedal edema. Palpable DP and PT pulse. Left groin with Prevena dressing intact with good suction. Medial aspect of left lower extremity with Prevena dressing in place with good suction. Left lower extremity warm to the touch with intact sensorimotor. Neurological: No focal deficits. Strength and sensation are grossly intact. Results CBC & Chem 7: 05/01/24 07:04 05/01/24 07:04 Labs: Abnormal Lab Results - Last 24 Hours (Table) 05/01/24 05/01/24 Range/Units 07:04 07:04 RBC 3.66 L (3.80-5.40) m/uL BUN 22 H (7-17) mg/dL Creatinine 1.26 H (0.52-1.04) mg/dL Assessment and Plan Assessment: 1. Severe left lower extremity peripheral vascular disease; patient is postop day #1 for left femoral cutdown and endarterectomy, left below-knee popliteal cutdown and endarterectomy and left femoral to distal popliteal bypass with CryoVein -Vascular surgery encouraging ambulation and recommending to keep dressings in place for 6 days --Continue with current pain control with morphine 2 mg IV every 2 hours as needed 2. Claudication with femoral to popliteal occlusive disease; vascular intervention as indicated above -Patient has been placed on aspirin, Pletal 100 mg daily and Plavix 75 mg daily 3. Acute renal injury; BUN/creatinine elevated at 22/1.26 on admission -- Patient remains on IV fluid hydration; plan to monitor strict LUCIO's, daily weights, renal function electrolytes; avoid nephrotoxins and hypotension; lisinopril placed on hold by primary service 4. History of hypertension; patient takes lisinopril/hydrochlorothiazide 20- 12.5 mg daily; currently placed on hold given mild renal injury; patient has IV hydralazine ordered to be used as needed 5. Hyperlipidemia; Lipitor 80 mg p.o. nightly 6. Hypothyroidism; levothyroxine 112 mcg daily DVT prophylaxis; early ambulation CODE STATUS; full code
[2024-05-01] MEDS: ATORVASTATIN 80 MG TAB PO SCH (19:57)
[2024-05-01 21:21] VITALS: RESP 18
[2024-05-02 07:57] VITALS: TEMP 98
[2024-05-02 09:49] LABS: African American GFR (CKD) 60 (>60 ml/min/1.73 sqM); Anion Gap 6 mmol/L; Blood Urea Nitrogen 21 mg/dL (7-17); Carbon Dioxide 25 mmol/L (22-30); Chloride 104 mmol/L (98-107); Glucose 210 mg/dL (74-99); Non-African American GFR(CKD) 52 (>60 ml/min/1.73 sqM); Potassium 4.2 mmol/L (3.5-5.1); Sodium 135 mmol/L (137-145)
[2024-05-02] MEDS: ACETAMINOPHEN TAB 325 MG TAB PO PRN (11:38)
[2024-05-02 11:49] VITALS: BP 121/84; PULSE 114
--- NOTE | 2024-05-02 13:49 | P.PN ---
Subjective Progress Note Date: 05/02/24 63-year-old female, with lifestyle limiting claudication worse in her left leg. Initial attempts were made for endovascular revascularization were unsuccessful therefore a bypass was recommended. Patient was admitted to the hospital for elective vascular surgery and underwent left femoral cutdown and endarterectomy, left below-knee popliteal cutdown and endarterectomy followed by left femoral to distal popliteal bypass; POD #1 Today's labs WBC 10.5 hemoglobin 11.8 platelet count 260,000 sodium 137 p otassium 4.6 BUN 22 creatinine 1.2 glucose 98 Patient seen and evaluated in room at bedside; her blood pressure was checked and was slightly elevated; denies any complaint of chest pain, shortness of breath or dizziness -- Patient takes lisinoprilhydrochlorothiazide 20-12.5 mg daily; recommend pat ient resume his diet upon discharge -- Patient is medically stable for discharge Objective - Vital Signs Vital signs: Vital Signs Temp 98.0 F 05/02/24 07:55 Pulse 117 H 05/02/24 07:55 Resp 18 05/02/24 07:55 BP 99/67 05/02/24 07:55 Pulse Ox 97 05/02/24 09:08 FiO2 Intake & Output 05/01/24 05/02/24 05/02/24 18:59 06:59 18:59 Intake Total 1218 140 Balance 1218 140 Weight 94 kg Intake: IV 20 Invasive Line 2 10 Invasive Line 3 10 Oral 1218 120 Other: Voiding Method Toilet Toilet Toilet # Voids 1 2 - Exam General appearance: The patient is alert, oriented, appears in no acute distress. HET: Head is normocephalic and atraumatic. Pupils are equal and reactive. Neck: Supple. Heart: Regular. Lungs: Equal expansion, normal respiratory effort. Abdomen: Soft, nontender, nondistended. Extremities: Normal skin color and turgor. Left lower extremity and pedal edema. Palpable DP and PT pulse. Left groin with Prevena dressing intact with good suction. Medial aspect of left lower extremity with Prevena dressing in place with good suction. Left lower extremity warm to the touch with intact sensorimotor. Neurological: No focal deficits. Strength and sensation are grossly intact. - Labs CBC & Chem 7: 05/01/24 07:04 05/02/24 08:22 Labs: Abnormal Lab Results - Last 24 Hours (Table) 05/02/24 Range/Units 08:22 Sodium 135 L (137-145) mmol/L BUN 21 H (7-17) mg/dL Creatinine 1.13 H (0.52-1.04) mg/dL Glucose 210 H (74-99) mg/dL Assessment and Plan Assessment: 1. Severe left lower extremity peripheral vascular disease; patient is postop day #1 for left femoral cutdown and endarterectomy, left below-knee popliteal cutdown and endarterectomy and left femoral to distal popliteal bypass with CryoVein -Vascular surgery encouraging ambulation and recommending to keep dressings in place for 6 days --Continue with current pain control with morphine 2 mg IV every 2 hours as needed 2. Claudication with femoral to popliteal occlusive disease; vascular inter vention as indicated above -Patient has been placed on aspirin, Pletal 100 mg daily and Plavix 75 mg daily 3. Acute renal injury; BUN/creatinine elevated at 22/1.26 on admission -- Patient remains on IV fluid hydration; plan to monitor strict LUCIO's, daily weights, renal function electrolytes; avoid nephrotoxins and hypotension; lisinopril placed on hold by primary service 4. History of hypertension; patient takes lisinopril/hydrochlorothiazide 20- 12.5 mg daily; currently placed on hold given mild renal injury; patient has IV hydralazine ordered to be used as needed 5. Hyperlipidemia; Lipitor 80 mg p.o. nightly 6. Hypothyroidism; levothyroxine 112 mcg daily DVT prophylaxis; early ambulation CODE STATUS; full code
--- NOTE | 2024-05-02 14:54 | P.DS ---
Providers Date of admission: 04/30/24 05:41 Attending physician: Elsa Winslow DO Consults: 04/30/24 14:11 Consult Physician Routine Consulting Provider: Vikash Carter Consult Reason/Comments: Medical management Do you want consulting provider notified?: Yes Primary care physician: [facility] Course: Savannah is a 63-year-old female with severe peripheral arterial disease who under went a left femoral to below-knee popliteal bypass with CryoVein. She has been convalescing well without any significant issues or concerns. Her pain is well- controlled. Her vitals are stable and she is found to be in satisfactory condition for discharge home. Plan - Discharge Summary Discharge Rx Participant: No New Discharge Prescriptions: New Acetaminophen Tab [Tylenol] 650 mg PO Q6HR PRN tab PRN Reason: Fever And/ Or Pain Clopidogrel [Plavix] 75 mg PO DAILY #30 tab Continue Levothyroxine Sodium [Synthroid] 112 mcg PO DAILY Aspirin [Adult Low Dose Aspirin EC] 81 mg PO DAILY Dextroamphetamine/Amphetamine [Adderall] 30 mg PO DAILY cilostazoL [Pletal] 100 mg PO BID Lisinopril-Hctz 20-12.5 mg [Zestoretic 20-12.5] 1 tab PO HS Atorvastatin [Lipitor] 80 mg PO HS Discontinued Ibuprofen [Advil] 200 mg PO DAILY PRN PRN Reason: Pain Discharge Medication List Aspirin [Adult Low Dose Aspirin EC] 81 mg PO DAILY 10/02/23 [History] Levothyroxine Sodium [Synthroid] 112 mcg PO DAILY 10/02/23 [History] Lisinopril-Hctz 20-12.5 mg [Zestoretic 20-12.5] 1 tab PO HS 10/02/23 [History] cilostazoL [Pletal] 100 mg PO BID 10/02/23 [History] Atorvastatin [Lipitor] 80 mg PO HS 10/29/23 [History] Dextroamphetamine/Amphetamine [Adderall] 30 mg PO DAILY 04/27/24 [History] Acetaminophen Tab [Tylenol] 650 mg PO Q6HR PRN tab 05/01/24 [Rx] Clopidogrel [Plavix] 75 mg PO DAILY #30 tab 05/01/24 [Rx] Follow up Appointment(s)/Referral(s): Elsa Winslow DO [STAFF PHYSICIAN] - 2 Weeks Patient Instructions/Handouts: Clopidogrel (By mouth), Femoropopliteal Bypass (DC) Activity/Diet/Wound Care/Special Instructions: No driving until cleared by vascular surgeon Avoid heavy lifting greater than 10 lbs , pushing, pulling, straining, until cleared by surgeon. Limit flights of stairs. ok to sponge bathe until Prevena dressings removed. Then may Shower but no baths, pools, soaking in tubs until cleared by surgeon avoid risk of infection. signs of infection ie: fever, rash, drainage from surgical site, swelling contact doctor or return to ER immediately. Heavy bleeding from surgical site apply firm direct pressure and return to ER. Do not attempt to drive self. low sodium/low fat diet Discharge Disposition: HOME SELF-CARE
== END 2024-05-02 16:38 | disposition home or self-care (01) | DRG 253 ==
LOC: 2ORMAIN 05:41 → 3SCARD 12:47
PROVIDERS: ADMIT Surgery; ATTEND Surgery
PROC: 04CL0ZZ Extirpation of Matter from Left Femoral Artery, Open Approach (ICD-10-PCS; 2024-04-30)
PROC: B44GZZZ Ultrasonography of Left Lower Extremity Arteries (ICD-10-PCS; 2024-04-30)
PROC: 041L0ZL Bypass Left Femoral Artery to Popliteal Artery, Open Approach (ICD-10-PCS; principal; 2024-04-30 07:30)
DX: I70.212 Atherosclerosis of native arteries of extremities with intermittent claudication, left leg (principal); N17.9 Acute kidney failure, unspecified; E03.9 Hypothyroidism, unspecified; Z79.890 Hormone replacement therapy; E66.9 Obesity, unspecified; E78.5 Hyperlipidemia, unspecified; R42 Dizziness and giddiness; M19.90 Unspecified osteoarthritis, unspecified site; I10 Essential (primary) hypertension; Z79.02 Long term (current) use of antithrombotics/antiplatelets; Z79.82 Long term (current) use of aspirin; Z79.899 Other long term (current) drug therapy; Z87.891 Personal history of nicotine dependence; Z86.79 Personal history of other diseases of the circulatory system
CPT/HCPCS: 80048; 85027; 94760

== ENCOUNTER 2024-08-20 05:51 | Inpatient (IN) | payer BC ==
[2024-08-18 12:05] VITALS: BMI 37.2
[2024-08-20] MEDS ORDERED: fentaNYL (PF) 50 MCG/ML 2 ML AMP IVP PRN (06:17)
[2024-08-20] MEDS ORDERED: LIDOCAINE 1% (10MG/ML) FOR IV START INTRADERMA PRN (06:17)
[2024-08-20] MEDS ORDERED: MIDAZOLAM 2 MG/2 ML VIAL IV PRN (06:17)
[2024-08-20] MEDS: IV FLUID CONTINUATION 1,000 ML IV ONE ×3 (06:55→18:18)
[2024-08-20 07:32] LABS: African American GFR (CKD) 55 (>60 ml/min/1.73 sqM); Anion Gap 12 mmol/L; Blood Urea Nitrogen 43 mg/dL (7-17); Calcium 9.8 mg/dL (8.4-10.2); Carbon Dioxide 20 mmol/L (22-30); Chloride 106 mmol/L (98-107); Glucose 96 mg/dL (74-99); Non-African American GFR(CKD) 48 (>60 ml/min/1.73 sqM); Sodium 138 mmol/L (137-145)
[2024-08-20] MEDS: LACTATED RINGERS 1,000 ML IV SCH (07:37)
[2024-08-20] MEDS: DEXAMETHASONE SOD PHOSPHATE 4 MG/ML 1 ML VIAL IV ONE (07:42)
[2024-08-20] MEDS: ONDANSETRON 4 MG/2 ML VIAL IVP ONE (07:42)
[2024-08-20 07:55] LABS: Basophils % (A) 0 %; Eosinophils # (A) 0.2 k/uL (0-0.7); Eosinophils % (A) 2 %; HCT 38.4 % (34.0-46.0); HGB 12.1 gm/dL (11.4-16.0); Lymphocytes # (A) 1.6 k/uL (1.0-4.8); Lymphocytes % (A) 14 %; MCH 30.3 pg (25.0-35.0); MCHC 31.4 g/dL (31.0-37.0); MCV 96.5 fL (80.0-100.0); Mean Platelet Volume 7.7; Monocytes # (A) 0.9 k/uL (0-1.0); Monocytes % (A) 8 %; Neutrophils # (A) 8.6 k/uL (1.3-7.7); Neutrophils % (A) 75 %; Platelet Count 272 k/uL (150-450); RBC 3.98 m/uL (3.80-5.40); RDW 14.9 % (11.5-15.5); WBC 11.4 k/uL (3.8-10.6)
--- NOTE | 2024-08-20 07:55 | P.HPIHPCON ---
History of Present Illness H&P Date: 08/20/24 Savannah is a 63-year-old female with severe lifestyle-limiting peripheral arterial disease. She previously underwent a left lower extremity femoral to tibial bypass and is here today for the same on her right lower extremity. She does not have any questions of the time. Risks and benefits discussed. Plan for right lower extremity femoral to below-knee bypass with CryoVein Consent for Procedure: I have explained the operation/procedure to the patient, including the risks, benefits, side effects, alternative therapies (including not receiving the proposed treatment or service), the likelihood of the patient achieving his/her goals, and potential recuperation problems for the procedure/sedation/analgesia, as well as any blood products, if indicated. I also explained to the patient the risks, benefits and side effects of the alternatives, as well as the risks rela sandeep to not receiving the proposed procedure, care, treatment, or services. Past Medical History Past Medical History: Hyperlipidemia, Hypertension, Osteoarthritis (OA), Thyroid Disorder, Vascular Disorder Additional Past Medical History / Comment(s): PAD. Arthritis and tendonitis in right shoulder, had steroid shot 08/10/24. History of Any Multi-Drug Resistant Organisms: None Reported Additional Past Surgical History / Comment(s): BILATERAL CAROTID ENDARTERECTOMY, left femoral to popliteal bypass. Past Anesthesia/Blood Transfusion Reactions: Postoperative Nausea & Vomiting (PONV) Additional Past Anesthesia/Blood Transfusion Reaction / Comment(s): PONV after last surgery only. Smoking Status: Former smoker - Past Family History Mother Family Medical History: No Reported History Brother(s) Additional Family Medical History / Comment(s): QUAD CABG. Medications and Allergies Home Medications Medication Instructions Recorded Confirmed Type Aspirin [Adult Low Dose Aspirin EC] 81 mg PO DAILY 10/02/23 08/20/24 History Levothyroxine Sodium [Synthroid] 112 mcg PO DAILY 10/02/23 08/20/24 History Lisinopril-Hctz 20-12.5 mg 1 tab PO DAILY 10/02/23 08/20/24 History [Zestoretic 20-12.5] cilostazoL [Pletal] 100 mg PO BID 10/02/23 08/20/24 History Atorvastatin [Lipitor] 80 mg PO HS 10/29/23 08/20/24 History Dextroamphetamine/Amphetamine 30 mg PO DAILY 04/27/24 08/20/24 History [Adderall] Clopidogrel [Plavix] 75 mg PO DAILY #30 tab 05/01/24 08/20/24 Rx Acetaminophen Tab [Tylenol] 650 mg PO Q6HR PRN 08/18/24 08/20/24 History Ibuprofen [Motrin Ib] 200 mg PO BID 08/18/24 08/20/24 History Allergies Allergy/AdvReac Type Severity Reaction Status Date / Time No Known Allergies Allergy Verified 08/20/24 06:38 Surgical - Exam Vital Signs Temp Pulse Resp BP Pulse Ox 97.2 F L 89 17 141/76 98 08/20/24 06:36 08/20/24 06:36 08/20/24 06:36 08/20/24 06:36 08/20/24 06:36 General pleasant cooperative female in no acute distress. Heart appears regular. Lungs are clear. Abdomen soft obese nontender. Extremities are obese, no wounds or open sores. Well-healed left lower extremity incisions Results - Labs 08/20/24 06:55 Abnormal Lab Results - Last 24 Hours (Table) 08/20/24 Range/Units 06:55 Carbon Dioxide 20 L (22-30) mmol/L BUN 43 H (7-17) mg/dL Creatinine 1.21 H (0.52-1.04) mg/dL Diabetes panel 08/20/24 Range/Units 06:55 Sodium 138 (137-145) mmol/L Potassium 5.0 (3.5-5.1) mmol/L Chloride 106 (98-107) mmol/L Carbon Dioxide 20 L (22-30) mmol/L BUN 43 H (7-17) mg/dL Creatinine 1.21 H (0.52-1.04) mg/dL Glucose 96 (74-99) mg/dL Calcium 9.8 (8.4-10.2) mg/dL Calcium panel 08/20/24 Range/Units 06:55 Calcium 9.8 (8.4-10.2) mg/dL Pituitary panel 08/20/24 Range/Units 06:55 Sodium 138 (137-145) mmol/L Potassium 5.0 (3.5-5.1) mmol/L Chloride 106 (98-107) mmol/L Carbon Dioxide 20 L (22-30) mmol/L BUN 43 H (7-17) mg/dL Creatinine 1.21 H (0.52-1.04) mg/dL Glucose 96 (74-99) mg/dL Calcium 9.8 (8.4-10.2) mg/dL Adrenal panel 08/20/24 Range/Units 06:55 Sodium 138 (137-145) mmol/L Potassium 5.0 (3.5-5.1) mmol/L Chloride 106 (98-107) mmol/L Carbon Dioxide 20 L (22-30) mmol/L BUN 43 H (7-17) mg/dL Creatinine 1.21 H (0.52-1.04) mg/dL Glucose 96 (74-99) mg/dL Calcium 9.8 (8.4-10.2) mg/dL Assessment and Plan Assessment: [place] 3 lifestyle limiting peripheral arterial disease Superficial femoral artery occlusive disease, previous left lower extremity bypass Plan: Plan today for right lower extremity femoral to below-knee popliteal bypass with CryoVein once vein arrives. Discussed with patient. Risks and benefits discussed. Questions answered.
[2024-08-20 08:05] LABS: INR 0.9 (<1.2); Prothrombin Time 10.1 sec (10.0-12.5)
[2024-08-20] MEDS ORDERED: MIDAZOLAM 2 MG/2 ML VIAL ONE (08:10)
[2024-08-20] MEDS ORDERED: NEOSTIGMINE 1 MG/ML 10 ML VIAL ONE (08:10)
[2024-08-20] MEDS ORDERED: HEPARIN SODIUM,PORCINE 10,000 UNIT/ML 1 ML VIAL ONE (08:10)
[2024-08-20] MEDS ORDERED: ROCURONIUM 10 MG/ML (5 ML VIAL) IV ONE ×2 (08:10→18:43)
[2024-08-20] MEDS ORDERED: SUCCINYLCHOLINE CHLORIDE 200 MG/10 ML VIAL IV ONE ×2 (08:10→18:43)
[2024-08-20] MEDS ORDERED: HYDROmorphone (PF) 1 MG/ML ONE (08:10)
[2024-08-20] MEDS ORDERED: PROPOFOL 10 MG/ML 20 ML VIAL IV ONE ×2 (08:10→18:43)
[2024-08-20] MEDS ORDERED: GLYCOPYRROLATE 0.2 MG/ML 2 ML VIAL ONE (08:10)
[2024-08-20] MEDS ORDERED: PHENYLEPHRINE 10 MG/ML VIAL ONE ×2 (08:10→18:43)
[2024-08-20] MEDS ORDERED: fentaNYL (PF) 50 MCG/ML 2 ML AMP ONE ×2 (08:10→18:43)
[2024-08-20] MEDS ORDERED: LIDOCAINE 1% INJ 10MG/ML (20 ML MDV) ONE ×2 (08:10→18:43)
[2024-08-20] MEDS: ceFAZolin 2 GM in SODIUM CHLORIDE 0.9% 500 ML 500 ML IRRIGATION ONE (09:17)
[2024-08-20] MEDS: HEPARIN SODIUM,PORCINE 10,000 UNIT in SODIUM CHLORIDE 0.9% 1,000 ML IRRIGATION ONE ×2 (09:21→19:21)
[2024-08-20] MEDS: HEPARIN SODIUM,PORCINE 500 UNIT in LACTATED RINGERS 1,000 ML IRRIGATION ONE (09:22)
[2024-08-20] MEDS: THROMBIN (BOVINE) 5,000 UNIT VIAL TOPICAL ONE (09:26)
[2024-08-20] MEDS: LACTATED RINGERS 1,000 ML IV ONE (10:59)
[2024-08-20] MEDS: HYDROmorphone 0.5 MG/0.5 ML SYRINGE IVP PRN (12:50)
[2024-08-20] MEDS ORDERED: ACETAMINOPHEN TAB 325 MG TAB PO PRN (13:53)
--- NOTE | 2024-08-20 13:53 | P.OP ---
Date of Procedure: 08/20/24 Description of Procedure: preoperative diagnosis: Lifestyle-limiting peripheral vascular disease, femoral-popliteal occlusive disease Postoperative diagnosis: Same Procedure: Right femoral cutdown. Left below-knee popliteal cutdown Popliteal, posterior tibial and tibioperoneal endarterectomy with patch tracie oplasty Right femoral to distal popliteal bypass with CryoVein Surgeon: Elsa Winslow D.O. Dry House Operator: Patricia EBL: 150 cc IV fluids: See records Drains: None, Prevena incisional wound vacs Urine output: See records Complications: None Condition: Stable, extubated in the OR to PACU Operative indication and findings: The patient is a 63-year-old female with lifestyle limiting claudication worse in her right leg. Initial attempts were made for endovascular revascularization were unsuccessful therefore a bypass was recommended. She previously had a bypass of her left lower extremity in the [place] e manner.. Risks and benefits were discussed including but not limited to bleeding, infection, limb loss, heart attack, poor wound healing and . The patient seemingly understood and was willing to proceed. Procedure in detail: Patient taken to the operative suite placed in supine position and intubated. A Winslow catheter was placed. The abdomen and right lower extremity prepped and draped in usual sterile fashion. A preprocedure timeout was performed and all parties are in agreement. An oblique incision was made in the right groin with the scalpel. It was deepened through subcutaneous tissues with electrocautery. The encountered lymphatics were ligated and divided. The femoral sheath was opened sharply. The common femoral artery was dissected free circumferentially. The dissection was extended proximally to the level of the inguinal ligament, and distally to include the distal common femoral artery They were encircled with vessel loops. The area appears soft with good palpable pulse. Attention was then turned towards the below-knee incision. It was made in the medial condyle and deepened through the fascia. There was significant depth of the soft tissue in order to get to the popliteal artery was identified the popliteal vein was retracted. Vessel loops were placed after careful circumferential dissection. This was done at the level of the distal popliteal artery encircling also the anterior tibial and tibioperoneal trunk distally. Minimal amount of heparin was given. The flow was occluded through this area due to the need for endarterectomy. An 11 blade was utilized and the vessel was opened. Where elevator was utilized for an endarterectomy. This was carried onto the level of the a tibioperoneal trunk and endarterectomized at this portion. There was an eversion endarterectomy of the anterior tibial artery. There was no evidence of any residual plaquing or flaps need intact. A bovine pericardial patch was utilized with 6-0 Prolene. The patch was completed and flushed prior to.. A tunneler was then placed in the subsartorial plane. at that point the patient was fully heparinized and ACT is were followed. Once heparinization was adequate, flow was occluded through the vessel. An 11 blade was utilized and arteriotomy is made the Hopkins-Pinedo scissors was utilized to enlarge the arteriotomy. Proximally and distally were allowed to backbleed. An anastomosis was then created with the previously treated and flushed CryoVein using 5-0 Prolene between the femoral artery and the saphenous vein. The vein was marked and passed through the tunneler. The tunneler was removed. At that point the arteriotomy of the popliteal segment was performed with the previous patch. The vein was cut to size and spatulated. Utilizing 6-0 Prolene an anastomosis was created. At this point all anastomoses were completed and flow was resumed through the bypass graft. Hemostasis was achieved with interrupted sutures of 6-0 Prolene and Surgicel. A Doppler was utilized to confirm multiphasic flow distally to the anastomosis. There was a palpable pulse at the ankle and the posterior tibial pulse. The wound was copiously irrigated with antibiotic solution. The femoral sheath and The popliteal fascia was reapproximated with interrupted sutures of 3-0 Vicryl. The subcuticular tissue was reapproximated with 3-0 Vicryl. The skin was closed with running sutures of 4-0 Monocryl. Incisional wound VAC dressings were placed.
[2024-08-20] MEDS: MORPHINE SULFATE 2 MG/ML SYRINGE IVP PRN (14:51)
--- NOTE | 2024-08-20 14:57 | P.PN ---
Progress Note - Text Progress Note Date: 08/20/24 Patient seen postoperatively regarding right lower extremity swelling. Patient is postop day #0 for right femoral to distal popliteal bypass with CryoVein. Patient is complaining of right calf pain near surgical site. Right groin with Prevena wound VAC with good suction. Medial calf incision with dressing with 2 small areas of sanguinous drainage. Calf is firm and swollen. Right lower extremity warm to touch, sensorimotor intact with good flexion at ankle and able to wiggle toes. Good capillary refill. Positive popliteal and DP signal. Unable to obtain PT signal. CBC ordered. Will keep patient n.p.o. for now. Discussed with nursing close observation of right lower extremity swelling, bleeding and sensorimotor. Dr. Winslow notified. The impression and plan of care has been dictated as directed. Dr. Winslow I performed a history and examination of this patient, discussed the same with the dictator. I agree with the dictator's note ,documented as a scribe. Any additional findings or plans will be noted.
[2024-08-20 16:56] LABS: HCT 32.4 % (34.0-46.0); HGB 10.3 gm/dL (11.4-16.0); MCH 30.6 pg (25.0-35.0); MCHC 31.8 g/dL (31.0-37.0); MCV 96.1 fL (80.0-100.0); Mean Platelet Volume 8.4; Platelet Count 402 k/uL (150-450); RBC 3.37 m/uL (3.80-5.40); RDW 15.3 % (11.5-15.5); WBC 23.2 k/uL (3.8-10.6)
[2024-08-20] MEDS: SODIUM CHLORIDE 0.9% 50 ML with ceFAZolin 2,000 MG IV ONE (18:47)
[2024-08-20] MEDS: ceFAZolin 4,000 MG in SODIUM CHLORIDE 0.9% 1,000 ML IRRIGATION ONE (19:22)
--- NOTE | 2024-08-20 21:15 | P.OP ---
Date of Procedure: 08/20/24 Description of Procedure: Preoperative diagnosis: Popliteal incision hematoma, occluded graft Postoperative diagnosis: Same Procedure: open exploration of popliteal incision evacuation of hematoma open thrombectomy of saphenous vein graft control of hemorrhage - saphenous vein cadaver graft open exploration of femoral incision Surgeon: Elsa Winslow D.O. EBL: 200 cc IV fluids: See records Urine output: See records Drains: None Complications: None immediately apparent Condition: Stable to recovery Procedure in detail: Patient is a 63-year-old female who earlier today underwent a right femoral to below-knee popliteal bypass with CryoVein. She developed significant swelling in her popliteal incision site with loss of signals at her ankle that were previously present after surgical intervention. Due to this she was brought back to the operative suite for repeat intervention. Risk and benefits have been discussed. She seemed understood and is willing to proceed. The patient was brought to the op suite placed in supine position. The right lower extremity and abdomen were prepped and draped in usual sterile fashion. A preprocedural timeout was performed, all parties were in agreement. The previous incision was opened and carried down to the subcutaneous tissue where we encountered a significant amount of hematoma. There was no obvious or active appearing bleeding at this time. The graft was identified and found to be pulseless. The decision was made to go for an open thrombectomy therefore a transverse incision was made at the angle of the graft where it crossed the muscle. Upon the first pass of the Steve it was evident that there was a patent branch vessel prior as the balloon was visualized, likely from a previous branch. It was sutured with 6-0 Prolene and thrombectomy was then performed. There was difficulty in passage all the way to the proximal due to it being in the saphenous vein therefore the femoral incision site was opened and carried down to the graft itself. A graftotomy was made and thrombectomy performed. Significant flushing of the graft distally was performed with easy flushing and widely patent vessel. The inflow was thrombectomized and subsequently the graftotomy proximally was sutured closed with 6-0 Prolene. Hemostasis was achieved with 6-0 Prolene. Attention was then turned down further distally, there was rapid and brisk black bleeding from the distal outflow site. Due to its location there was inability to check individual tibial vessels. Due to the evidence of good backbleeding, the decision was made to flush the graftotomy then closed with 6-0 Prolene. The area was then completely flushed. There was a good audible signal distally to the bypass graft in both the posterior tibial and tibioperoneal trunk. There is an audible posterior tibial at the ankle. Both areas were irrigated aggressively with antibiotic solution there was no further visualized portions of bleeding. The deep tissues were reapproximated with running 2-0 Vicryl. Subcutaneous tissues were reapproximated interrupted sutures of 3-0 Vicryl. The skin was closed with frantz. Prevena wound vacs were placed. The patient was awakened from surgery and transferred to recovery in stable condition
[2024-08-20] MEDS: ATORVASTATIN 80 MG TAB PO SCH (22:02)
[2024-08-20] MEDS: HYDROcodone/APAP 5-325MG 1 EACH TAB PO PRN (22:05)
[2024-08-21] MEDS: HYDROmorphone 1 MG/ML 1 ML SYRINGE IVP PRN (02:56)
[2024-08-21] MEDS: LEVOTHYROXINE 112 MCG TAB PO SCH (06:37)
[2024-08-21] MEDS ORDERED: METOCLOPRAMIDE 5 MG/ML 2 ML VIAL IM PRN (07:46)
[2024-08-21] MEDS: METOCLOPRAMIDE 5 MG/ML 2 ML VIAL IVP SCH (08:07)
[2024-08-21] MEDS: NON FORMULARY DRUG (Dextroamphetamine/Amphetamine [Adderall] 30 MG Tablet) PO SCH (08:08)
[2024-08-21] MEDS: DOCUSATE 100 MG CAP PO SCH (08:09)
[2024-08-21] MEDS: cilostazoL 100 MG TAB PO SCH (08:09)
[2024-08-21] MEDS: LISINOPRIL-HCTZ 20-12.5 MG 1 EACH TAB PO SCH (08:09)
[2024-08-21] MEDS: CLOPIDOGREL 75 MG TAB PO SCH (08:09)
[2024-08-21] MEDS: ASPIRIN 81 MG PO SCH (08:09)
[2024-08-21] MEDS: SCOPOLAMINE 1 MG/72 HR PATCH TRANSDERM SCH (08:17)
[2024-08-21 08:59] LABS: Basophils % (A) 0 %; Eosinophils % (A) 0 %; HCT 33.3 % (34.0-46.0); HGB 10.6 gm/dL (11.4-16.0); Lymphocytes # (A) 1.8 k/uL (1.0-4.8); Lymphocytes % (A) 10 %; MCHC 31.7 g/dL (31.0-37.0); MCV 97.8 fL (80.0-100.0); Mean Platelet Volume 8.9; Monocytes # (A) 1.9 k/uL (0-1.0); Monocytes % (A) 11 %; Neutrophils # (A) 13.9 k/uL (1.3-7.7); Neutrophils % (A) 78 %; Platelet Count 310 k/uL (150-450); RBC 3.41 m/uL (3.80-5.40); RDW 15.1 % (11.5-15.5); WBC 17.9 k/uL (3.8-10.6)
[2024-08-21 09:17] LABS: African American GFR (CKD) 29 (>60 ml/min/1.73 sqM); Anion Gap 10 mmol/L; Blood Urea Nitrogen 48 mg/dL (7-17); Calcium 8.7 mg/dL (8.4-10.2); Carbon Dioxide 18 mmol/L (22-30); Chloride 103 mmol/L (98-107); Glucose 138 mg/dL (74-99); Non-African American GFR(CKD) 26 (>60 ml/min/1.73 sqM); Sodium 131 mmol/L (137-145)
[2024-08-21 09:34] LABS: Potassium 6.5 mmol/L (3.5-5.1)
[2024-08-21 10:25] LABS: Magnesium 1.9 mg/dL (1.6-2.3); Potassium 5.9 mmol/L (3.5-5.1)
[2024-08-21] MEDS: SODIUM CHLORIDE 0.9% 500 ML 500 ML IV ONE (11:52)
[2024-08-21] MEDS: SODIUM ZIRCONIUM CYCLOSILICATE 10 GM PACKET PO ONE ×2 (11:55→15:58)
--- NOTE | 2024-08-21 12:14 | P.PN ---
Subjective Progress Note Date: 08/21/24 Principal diagnosis: Femoral-popliteal occlusive disease status post right femoral to below the knee bypass Patient is seen and examined today as a follow-up. She is postop day #1 for right femoral to below the knee popliteal bypass with CryoVein. Yesterday postoperatively that she had swelling to the right lower extremity in her popliteal incision site with loss of signals at the ankle and increased pain. Yesterday evening she was taken back to the operating room for open exploration of the popliteal incision with evacuation of hematoma, open thrombectomy of the saphenous vein graft with control of hemorrhage of the saphenous vein cadaver graft and open exploration of femoral incision. Patient states she has had quite a bit of nausea and vomiting throughout the night. She is taking some clear liquids but not holding much down. Pain is improved in her right lower extremity however she does have pain in her foot she reports mostly in her heel. Prevena wound vacs are in place right groin and right calf with good suction. Winslow catheter is in place with 300 mL output throughout the night. Today's labs WBC 17.9 hemoglobin 10.6 platelet count 310,000 sodium 131 potassium 6.5 with a repeat of 5.9 BUN 48 creatinine 2.0 magnesium 1.9 Objective - Vital Signs Vital signs: Vital Signs Temp 98.3 F 08/21/24 03:39 Pulse 95 08/21/24 03:39 Resp 18 08/21/24 03:39 BP 115/77 08/21/24 03:39 Pulse Ox 98 08/21/24 03:39 FiO2 Intake & Output 08/20/24 08/21/24 08/21/24 18:59 06:59 18:59 Intake Total 1803 102 Output Total 450 300 Balance 1353 -198 Weight 92.5 kg Intake: IV 1803 102 Output: Urine 300 100 Estimated Blood Loss 150 200 Other: Voiding Method Indwelling Catheter - Exam General appearance: The patient is alert, oriented, appears in no acute distress. HET: Head is normocephalic and atraumatic. Pupils are equal and reactive. Neck: Supple. Heart: Regular. Lungs: Equal expansion, normal respiratory effort. Abdomen: Soft, nontender, nondistended. Extremities: Right groin with Prevena wound VAC in place with good suction. Right medial calf with Prevena wound VAC with good suction. Swelling of right lower extremity, however improved from yesterday and soft. Warm to the touch, foot warm to the touch with good capillary refill, sensorimotor intact. Audible PT and DP Doppler signal. Neurological: No focal deficits. Alert and oriented x 3. - Labs CBC & Chem 7: 08/21/24 08:20 08/21/24 09:53 Labs: Abnormal Lab Results - Last 24 Hours (Table) 08/20/24 Range/Units 15:44 WBC 23.2 H (3.8-10.6) k/uL RBC 3.37 L (3.80-5.40) m/uL Hgb 10.3 L (11.4-16.0) gm/dL Hct 32.4 L (34.0-46.0) % Assessment and Plan Assessment: 1. Lifestyle limiting peripheral vascular disease with femoral popliteal occlusive disease status post right femoral to distal popliteal bypass with CryoVein 2. Postop popliteal incision hematoma and occluded graft status post open exploration popliteal incision and evacuation of hematoma, open thrombectomy of saphenous vein graft with control of hemorrhage of the saphenous vein, open exploration of the femoral incision 3. Acute blood loss anemia secondary to above 4. Postop nausea and vomiting 5. Acute kidney injury secondary to above 6. Hyperkalemia 7. History of hyperlipidemia and hypertension 8. Hypothyroidism Plan: 1. Consult to medical team for medical management 2. Increase IV fluids 3. Antiemetics ordered 4. CBC, CMP ordered 5. Physical therapy consulted 6. Encourage activity as tolerated 7. Heart healthy diet 8. Incentive spirometer ordered, encourage use every hour 9. May keep Winslow catheter in until seen by physical therapy then discontinue if urine output adequate 10. Keep Prevena wound vacs in place for 6 more days 11. Rest of medical management per primary medical team The impression and plan of care has been dictated as directed. Dr. Trent I performed a history and examination of this patient, discussed the same with the dictator. I agree with the dictator's note ,documented as a scribe. Any additional findings or plans will be noted.
[2024-08-21] MEDS: CALCIUM GLUCONATE IN NACL 1 GM in SALINE 1 100ML.BAG IVPB ONE (15:20)
[2024-08-21] MEDS: DEXTROSE 50% SYRINGE 50 ML IVP ONE (15:41)
[2024-08-21] MEDS: INSULIN REGULAR 100 UNIT/ML VIAL (IV) IV ONE (15:41)
[2024-08-21] MEDS: SODIUM BICARB 8.4% 50 ML SYR (1 MEQ/ML) IV STA (15:46)
--- NOTE | 2024-08-21 16:45 | P.CONS ---
History of Present Illness - Reason for Consult Consult date: 08/21/24 Medical management - Chief Complaint Lifestyle limiting peripheral vascular disease - History of Present Illness 63-year-old female, history of hypertension, hyperlipidemia, hypothyroidism, osteoarthritis, with severe lifestyle-limiting peripheral arterial disease. She previously underwent a left lower extremity femoral to tibial bypass and is here today for the same on her right lower extremity. Patient has had superficial femoral artery occlusive disease with previous left lower extremity bypass; admitted for elective popliteal, posterior tibial and tibial peroneal endarterectomy with patch angioplasty, right lower extremity femoral to below- knee popliteal bypass -Patient is POD #1 Blood work completed reveals a WBC of 17.9 which is down from 23.2 yesterday, hemoglobin of 10.6 and platelet count of 310, sodium 131, potassium 6.5, BUNs/creatinine of 48/2.08 and blood glucose of 138, magnesium 1.9 -Patient received treatment for hyperkalemia protocol; repeat potassium level trended down to 5.9 and is up at 6.4 again Review of Systems REVIEW OF SYSTEMS: CONSTITUTIONAL: No fever, no malaise, no fatigue. HEENT: No recent visual problems or hearing problems. Denied any sore throat. CARDIOVASCULAR: No chest pain, orthopnea, PND, no palpitations, no syncope. PULMONARY: No shortness of breath, no cough, no hemoptysis. GASTROINTESTINAL: No diarrhea, no nausea, no vomiting, no abdominal pain. NEUROLOGICAL: No headaches, no weakness, no numbness. HEMATOLOGICAL: Denies any bleeding or petechiae. GENITOURINARY: Denies any burning micturition, frequency, or urgency. MUSCULOSKELETAL/RHEUMATOLOGICAL: Denies any joint pain, swelling, or any muscle pain. ENDOCRINE: Denies any polyuria or polydipsia. The rest of the 14-point review of systems is negative. Past Medical History Past Medical History: Hyperlipidemia, Hypertension, Osteoarthritis (OA), Thyroid Disorder, Vascular Disorder Additional Past Medical History / Comment(s): PAD. Arthritis and tendonitis in right shoulder, had steroid shot 08/10/24. History of Any Multi-Drug Resistant Organisms: None Reported Additional Past Surgical History / Comment(s): BILATERAL CAROTID ENDARTERECTOMY, left and right femoral to popliteal bypass. Past Anesthesia/Blood Transfusion Reactions: Postoperative Nausea & Vomiting (PONV) Additional Past Anesthesia/Blood Transfusion Reaction / Comm: PONV after last surgery only. Past Psychological History: No Psychological Hx Reported Smoking Status: Former smoker Past Alcohol Use History: None Reported Additional Past Alcohol Use History / Comment(s): Quit smoking 10+ years ago. Past Drug Use History: None Reported - Past Family History Mother Family Medical History: No Reported History Brother(s) Additional Family Medical History / Comment(s): QUAD CABG. Medications and Allergies Home Medications Medication Instructions Recorded Confirmed Type Aspirin [Adult Low Dose Aspirin EC] 81 mg PO DAILY 10/02/23 08/20/24 History Levothyroxine Sodium [Synthroid] 112 mcg PO DAILY 10/02/23 08/20/24 History Lisinopril-Hctz 20-12.5 mg 1 tab PO DAILY 10/02/23 08/20/24 History [Zestoretic 20-12.5] cilostazoL [Pletal] 100 mg PO BID 10/02/23 08/20/24 History Atorvastatin [Lipitor] 80 mg PO HS 10/29/23 08/20/24 History Dextroamphetamine/Amphetamine 30 mg PO DAILY 04/27/24 08/20/24 History [Adderall] Clopidogrel [Plavix] 75 mg PO DAILY #30 tab 05/01/24 08/20/24 Rx Acetaminophen Tab [Tylenol] 650 mg PO Q6HR PRN 08/18/24 08/20/24 History Ibuprofen [Motrin Ib] 200 mg PO BID 08/18/24 08/20/24 History HYDROcodone/APAP 5-325MG [[place] 1 each PO Q4HR PRN 3 Days #18 tab 08/21/24 Rx 5-325] Allergies Allergy/AdvReac Type Severity Reaction Status Date / Time No Known Allergies Allergy Verified 08/20/24 06:38 Physical Exam Vitals: Vital Signs Temp Pulse Resp BP BP BP Pulse Ox 08/21/24 11:59 107/57 08/21/24 11:34 98.2 F 54 L 14 71/56 100 08/21/24 08:00 98 F 78 14 111/76 100 08/21/24 03:39 98.3 F 95 18 115/77 98 08/20/24 23:00 98 F 106 H 16 92/61 96 08/20/24 21:50 97.6 F 99 15 110/81 100 08/20/24 21:30 99 15 165/76 99 08/20/24 21:19 95 18 179/86 99 08/20/24 21:09 92 17 122/76 99 08/20/24 20:54 91 16 115/70 99 08/20/24 17:57 94 18 110/79 99 08/20/24 15:52 94 22 118/81 08/20/24 15:21 97.4 F L 83 22 111/72 97 08/20/24 14:48 85 20 117/73 98 08/20/24 14:35 83 22 104/78 97 08/20/24 14:17 64 20 130/81 97 08/20/24 14:02 69 18 121/79 98 08/20/24 13:55 97.4 F L 75 18 132/80 95 08/20/24 13:18 71 16 128/72 100 08/20/24 13:03 69 16 117/64 141/77 100 08/20/24 12:47 65 15 129/62 133/73 100 08/20/24 12:34 66 17 115/73 113/69 98 Intake and Output 08/20/24 08/21/24 08/21/24 22:59 06:59 14:59 Intake Total 452 Output Total 200 100 Balance 252 -100 Intake: IV 452 Output: Urine 100 Estimated Blood Loss 200 Other: Voiding Method Indwelling Catheter Indwelling Catheter Weight 92.9 kg 92.5 kg General appearance: The patient is alert, oriented, appears in no acute distress. HET: Head is normocephalic and atraumatic. Pupils are equal and reactive. Neck: Supple. Heart: Regular. Lungs: Equal expansion, normal respiratory effort. Abdomen: Soft, nontender, nondistended. Extremities: Right groin with Prevena wound VAC in place with good suction. Right medial calf with Prevena wound VAC with good suction. Swelling of right lower extremity, however improved from yesterday and soft. Warm to the touch, foot warm to the touch with good capillary refill, sensorimotor intact. Audible PT and DP Doppler signal. Neurological: No focal deficits. Alert and oriented x 3. Results CBC & Chem 7: 08/21/24 08:20 08/21/24 12:43 Labs: Abnormal Lab Results - Last 24 Hours (Table) 08/20/24 08/21/24 08/21/24 Range/Units 15:44 08:20 08:20 WBC 23.2 H 17.9 H (3.8-10.6) k/uL RBC 3.37 L 3.41 L (3.80-5.40) m/uL Hgb 10.3 L 10.6 L (11.4-16.0) gm/dL Hct 32.4 L 33.3 L (34.0-46.0) % Neutrophils # 13.9 H (1.3-7.7) k/uL Monocytes # 1.9 H (0-1.0) k/uL Sodium 131 L (137-145) mmol/L Potassium 6.5 H* (3.5-5.1) mmol/L Carbon Dioxide 18 L (22-30) mmol/L BUN 48 H (7-17) mg/dL Creatinine 2.03 H (0.52-1.04) mg/dL Glucose 138 H (74-99) mg/dL 08/21/24 Range/Units 09:53 WBC (3.8-10.6) k/uL RBC (3.80-5.40) m/uL Hgb (11.4-16.0) gm/dL Hct (34.0-46.0) % Neutrophils # (1.3-7.7) k/uL Monocytes # (0-1.0) k/uL Sodium (137-145) mmol/L Potassium 5.9 H (3.5-5.1) mmol/L Carbon Dioxide (22-30) mmol/L BUN (7-17) mg/dL Creatinine (0.52-1.04) mg/dL Glucose (74-99) mg/dL Assessment and Plan Assessment: 1. Lifestyle limiting peripheral vascular disease with femoral popliteal occlusive disease status post right femoral to distal popliteal bypass with Cr yoVein -Patient is postop popliteal incision hematoma and occluded graft status post open exploration popliteal incision and evacuation of hematoma, open thrombectomy of saphenous vein graft with control of hemorrhage of the saphenous vein, open exploration of the femoral incision; POD #1; patient remains on aspirin 81 mg daily, Pletal 100 mg twice daily and Plavix 75 mg daily -Vascular surgery recommending PT consult and increase activity; incentive spirometry -Winslow catheter in place and can be discontinued once activity is improved and patient is evaluated by PT 2. Acute blood loss anemia secondary to above; hemoglobin at 10.6 this morning; we will monitor H&H closely 3. Leukocytosis; possibly reactive; no signs of infection; we will monitor CBC, CRP and procalcitonin; obtain blood culture; make further recommendations accordingly 4. Acute kidney injury secondary to above; patient is currently on IV fluid hydration; monitor strict LUCIO's, daily weights, renal function electrolytes; avoid nephrotoxins and hypotension -Recommend nephrology consult 5. Persistent hyperkalemia; patient has been treated with hyperkalemia protocol; repeat potassium level remains persistently elevated -Hyperkalemia protocol in place; nephrology is consulted 6. Hypothyroidism; continue home dose of levothyroxine 7. Hyperlipidemia; Lipitor 80 mg p.o. nightly 8. Hypertension; antihypertensive therapy remains on hold given episodes of hypotension; blood pressure improved with IV fluid bolus; will monitor closely DVT prophylaxis; SCDs/Pletal/aspirin CODE STATUS; full code
[2024-08-21] MEDS: SODIUM BICARB 8.4% 50 ML SYR (1 MEQ/ML) IV ONE (17:12)
[2024-08-21] MEDS: SODIUM CHLORIDE 0.9% 1,000 ML IV SCH (21:06)
[2024-08-22] MEDS: SODIUM CHLORIDE 0.9% 500 ML 500 ML IV ONE (00:01)
[2024-08-22 08:01] LABS: HCT 23.6 % (34.0-46.0); MCH 31.1 pg (25.0-35.0); MCHC 32.8 g/dL (31.0-37.0); MCV 94.6 fL (80.0-100.0); Mean Platelet Volume 8.3; Platelet Count 264 k/uL (150-450); RBC 2.49 m/uL (3.80-5.40); RDW 15.7 % (11.5-15.5); WBC 13.6 k/uL (3.8-10.6)
[2024-08-22 08:04] LABS: HGB 7.7 gm/dL (11.4-16.0)
[2024-08-22 08:28] LABS: African American GFR (CKD) 41 (>60 ml/min/1.73 sqM); Anion Gap 6 mmol/L; Blood Urea Nitrogen 39 mg/dL (7-17); Calcium 8.5 mg/dL (8.4-10.2); Carbon Dioxide 27 mmol/L (22-30); Chloride 97 mmol/L (98-107); Glucose 120 mg/dL (74-99); Non-African American GFR(CKD) 35 (>60 ml/min/1.73 sqM); Potassium 4.4 mmol/L (3.5-5.1); Sodium 130 mmol/L (137-145)
--- NOTE | 2024-08-22 10:13 | P.NPCON ---
History of Present Illness - Reason for Consult acute renal failure, chronic renal failure - History of Present Illness Reason for consultation: Acute kidney injury on chronic kidney disease History of present illness: Patient is a 63-year-old female seen in renal consultation for acute kidney injury on chronic kidney disease. Patient has chronic kidney disease stage IIIa with baseline creatinine near 1.2 secondary to nephrosclerosis. Patient came to the hospital August 20, 2024 for elective surgery. She underwent right femoral to distal popliteal bypass on August 20, 2024. She subsequently developed hematoma and underwent evacuation of hematoma, open thrombectomy of saphenous vein graft the same day. Creatinine was 1.2 on admission and peaked at 2.03 yesterday. It is 1.56 today. Patient became quite hypotensive with systolic blood pressure in the 70s this admission for which she did receive fluid bolus. She was also on antihypertensives including lisinopril and hydrochlorothiazide which are both now discontinued. Potassium was up to 6.5 and did improve with medical management. She denies history of diabetes or coronary artery disease. Denies use of nonsteroidals. Vital signs are stable. General: No acute distress. HEENT: Head exam is unremarkable. LUNGS: No audible rhonchi or wheezes. HEART: Rate and Rhythm are regular. ABDOMEN: Nontender. EXTREMITITES: 2+ edema right lower extremity. Past Medical History Past Medical History: Hyperlipidemia, Hypertension, Osteoarthritis (OA), Thyroid Disorder, Vascular Disorder Additional Past Medical History / Comment(s): PAD. Arthritis and tendonitis in right shoulder, had steroid shot 08/10/24. History of Any Multi-Drug Resistant Organisms: None Reported Additional Past Surgical History / Comment(s): BILATERAL CAROTID ENDARTERECTOMY, left and right femoral to popliteal bypass. Past Anesthesia/Blood Transfusion Reactions: Postoperative Nausea & Vomiting (PONV) Additional Past Anesthesia/Blood Transfusion Reaction / Comment(s): PONV after last surgery only. Past Psychological History: No Psychological Hx Reported Smoking Status: Former smoker Past Alcohol Use History: None Reported Additional Past Alcohol Use History / Comment(s): Quit smoking 10+ years ago. Past Drug Use History: None Reported - Past Family History Mother Family Medical History: No Reported History Brother(s) Additional Family Medical History / Comment(s): QUAD CABG. Medications and Allergies Home Medications Medication Instructions Recorded Confirmed Type Aspirin [Adult Low Dose Aspirin EC] 81 mg PO DAILY 10/02/23 08/20/24 History Levothyroxine Sodium [Synthroid] 112 mcg PO DAILY 10/02/23 08/20/24 History Lisinopril-Hctz 20-12.5 mg 1 tab PO DAILY 10/02/23 08/20/24 History [Zestoretic 20-12.5] cilostazoL [Pletal] 100 mg PO BID 10/02/23 08/20/24 History Atorvastatin [Lipitor] 80 mg PO HS 10/29/23 08/20/24 History Dextroamphetamine/Amphetamine 30 mg PO DAILY 04/27/24 08/20/24 History [Adderall] Clopidogrel [Plavix] 75 mg PO DAILY #30 tab 05/01/24 08/20/24 Rx Acetaminophen Tab [Tylenol] 650 mg PO Q6HR PRN 08/18/24 08/20/24 History Ibuprofen [Motrin Ib] 200 mg PO BID 08/18/24 08/20/24 History HYDROcodone/APAP 5-325MG [[place] 1 each PO Q4HR PRN 3 Days #18 tab 08/21/24 Rx 5-325] Allergies Allergy/AdvReac Type Severity Reaction Status Date / Time No Known Allergies Allergy Verified 08/20/24 06:38 Physical Exam Vitals: Vital Signs Temp Pulse Resp BP BP Pulse Ox 08/22/24 07:43 110 H 16 117/59 97 08/22/24 03:27 98.7 F 110 H 20 133/77 92 L 08/22/24 01:46 96/61 08/21/24 23:39 98.1 F 114 H 16 76/56 96 08/21/24 19:47 97.9 F 118 H 18 98/55 08/21/24 15:35 91/58 08/21/24 15:26 98.4 F 72 14 76/65 95 08/21/24 11:59 107/57 08/21/24 11:34 98.2 F 54 L 14 71/56 100 Intake and Output 08/21/24 08/22/24 08/22/24 22:59 06:59 14:59 Intake Total 336 Output Total 600 1500 Balance -600 -1500 336 Intake: Oral 336 Output: Urine 600 1500 Other: Voiding Method Indwelling Catheter Indwelling Catheter Weight 92.5 kg Results - Lab Results Most recent lab results Calcium 8.5 mg/dL (8.4-10.2) 08/22/24 07:18 Magnesium 1.9 mg/dL (1.6-2.3) 08/21/24 09:53 08/22/24 07:18 08/22/24 07:18 Assessment and Plan Plan: Assessment: 1. Acute kidney injury secondary to ATN secondary to hypotension. Creatinine peaked at 2.03 this admission and is 1.56 today. 2. Chronic kidney disease stage IIIa with baseline creatinine near 1.2 secondary to nephrosclerosis. 3. Peripheral arterial disease status post right femoral to distal popliteal bypass August 20, 2024 with subsequent evacuation of hematoma. 4. Hyperkalemia secondary to acute kidney injury, acidosis and lisinopril. Improved with medical management. 5. Anemia secondary to hematoma. Rule out iron deficiency. 6. Metabolic acidosis secondary to acute kidney injury and IV fluids. Improved. Plan: Maintain IV fluids. Continue to hold diuretics as well as lisinopril. Check iron studies. Check renal ultrasound. Avoid nephrotoxins. Thank you for the consultation. I will continue to follow the patient with you during her hospital stay.
--- NOTE | 2024-08-22 11:19 | US ---
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 No nephrolithiasis is seen. Cortical medullary differentiation is maintained bilaterally. No masses are identified. The urinary bladder i s decompressed with Winslow catheter which limits evaluation. IMPRESSION: No hydronephrosis or nephrolithiasis. [facility], , 08/22/2024 11:17 AM
--- NOTE | 2024-08-22 13:04 | P.PN ---
Subjective Progress Note Date: 08/22/24 Principal diagnosis: claudication Patient seen and examined. Complaining of pain at the right foot and states is unable to put pressure on it to walk. PT attempted to work with patient yesterday and got her to stand. She states unable to ambulate at this time. Pain is described as pins in her feet. She denies any fevers, chills, chest pain or shortness of breath. Objective - Vital Signs Vital signs: Vital Signs Temp 98.7 F 08/22/24 03:27 Pulse 112 H 08/22/24 11:31 Resp 16 08/22/24 11:31 BP 89/63 08/22/24 11:31 Pulse Ox 97 08/22/24 11:31 FiO2 Intake & Output 08/21/24 08/22/24 08/22/24 18:59 06:59 18:59 Intake Total 336 Output Total 500 1600 Balance -500 -1600 336 Weight 92.5 kg Intake: Oral 336 Output: Urine 500 1600 Other: Voiding Method Indwelling Catheter Indwelling Catheter Indwelling Catheter - Exam General appearance: The patient is alert, oriented, appears in no acute dist ress, sitting in a chair. HET: Head is normocephalic and atraumatic. Pupils are equal and reactive. Neck: Supple. Heart: Regular. Lungs: Equal expansion, normal respiratory effort. Abdomen: Soft, nontender, nondistended. Extremities: Right groin with Prevena wound VAC in place with good suction. Right medial calf with Prevena wound VAC with good suction. Swelling of right lower extremity noted but soft. Warm to the touch, foot warm to the touch with good capillary refill, sensorimotor intact. Audible PT and DP Doppler signal. Neurological: No focal deficits. Alert and oriented x 3. - Labs CBC & Chem 7: 08/22/24 07:18 08/22/24 07:18 Labs: Abnormal Lab Results - Last 24 Hours (Table) 08/21/24 08/22/24 08/22/24 Range/Units 12:43 07:18 07:18 WBC 13.6 H (3.8-10.6) k/uL RBC 2.49 L (3.80-5.40) m/uL Hgb 7.7 L D (11.4-16.0) gm/dL Hct 23.6 L (34.0-46.0) % RDW 15.7 H (11.5-15.5) % Sodium 130 L (137-145) mmol/L Potassium 6.4 H* (3.5-5.1) mmol/L Chloride 97 L (98-107) mmol/L BUN 39 H (7-17) mg/dL Creatinine 1.56 H (0.52-1.04) mg/dL Glucose 120 H (74-99) mg/dL C-Reactive Protein 18.0 H (<1.0) mg/dL Assessment and Plan Assessment: 1. Lifestyle limiting peripheral vascular disease with femoral popliteal occlusive disease status post right femoral to distal popliteal bypass with CryoVein 2. Postop popliteal incision hematoma and occluded graft status post open exploration popliteal incision and evacuation of hematoma, open thrombectomy of saphenous vein graft with control of hemorrhage of the saphenous vein, open exploration of the femoral incision 3. Acute blood loss anemia secondary to above 4. Postop nausea and vomiting 5. Acute kidney injury secondary to above 6. Hyperkalemia 7. History of hyperlipidemia and hypertension 8. Hypothyroidism Plan: 1. Reviewed morning labs- H/H dropped. Will recheck. If less than 8 then would recommend transfusion. 2. Continue IV fluids 3. Continue current medical management. 4. PT to continue to treat, may need rehab if no significant improvement with walking. 5. Incentive spirometer ordered, encourage use every hour 6. Keep Prevena wound vacs in place for 6 more days
--- NOTE | 2024-08-22 14:56 | P.PN ---
Subjective Progress Note Date: 08/22/24 63-year-old female, history of hypertension, hyperlipidemia, hypothyroidism, osteoarthritis, with severe lifestyle-limiting peripheral arterial disease. She previously underwent a left lower extremity femoral to tibial bypass and is here today for the same on her right lower extremity. Patient has had superficial femoral artery occlusive disease with previous left lower extremity bypass; admitted for elective popliteal, posterior tibial and tibial peroneal endarterectomy with patch angioplasty, right lower extremity femoral to below- knee popliteal bypass -Patient is POD #1 Blood work completed reveals a WBC of 17.9 which is down from 23.2 yesterday, hemoglobin of 10.6 and platelet count of 310, sodium 131, potassium 6.5, BUNs/creatinine of 48/2.08 and blood glucose of 138, magnesium 1.9 -Patient received treatment for hyperkalemia protocol; repeat potassium level trended down to 5.9 and is up at 6.4 again Objective - Vital Signs Vital signs: Vital Signs Temp 98.7 F 08/22/24 03:27 Pulse 110 H 08/22/24 07:43 Resp 16 08/22/24 07:43 BP 117/59 08/22/24 07:43 Pulse Ox 97 08/22/24 07:43 FiO2 Intake & Output 08/21/24 08/22/24 08/22/24 18:59 06:59 18:59 Intake Total 336 Output Total 500 1600 Balance -500 -1600 336 Weight 92.5 kg Intake: Oral 336 Output: Urine 500 1600 Other: Voiding Method Indwelling Catheter Indwelling Catheter - Exam General appearance: The patient is alert, oriented, appears in no acute distress. HET: Head is normocephalic and atraumatic. Pupils are equal and reactive. Neck: Supple. Heart: Regular. Lungs: Equal expansion, normal respiratory effort. Abdomen: Soft, nontender, nondistended. Extremities: Right groin with Prevena wound VAC in place with good suction. Right medial calf with Prevena wound VAC with good suction. Swelling of right lower extremity, however improved from yesterday and soft. Warm to the touch, foot warm to the touch with good capillary refill, sensorimotor intact. Audible PT and DP Doppler signal. Neurological: No focal deficits. Alert and oriented x 3 - Labs CBC & Chem 7: 08/22/24 07:18 08/22/24 07:18 Labs: Abnormal Lab Results - Last 24 Hours (Table) 08/21/24 08/22/24 08/22/24 Range/Units 12:43 07:18 07:18 WBC 13.6 H (3.8-10.6) k/uL RBC 2.49 L (3.80-5.40) m/uL Hgb 7.7 L D (11.4-16.0) gm/dL Hct 23.6 L (34.0-46.0) % RDW 15.7 H (11.5-15.5) % Sodium 130 L (137-145) mmol/L Potassium 6.4 H* (3.5-5.1) mmol/L Chloride 97 L (98-107) mmol/L BUN 39 H (7-17) mg/dL Creatinine 1.56 H (0.52-1.04) mg/dL Glucose 120 H (74-99) mg/dL C-Reactive Protein 18.0 H (<1.0) mg/dL Assessment and Plan Assessment: 1. Lifestyle limiting peripheral vascular disease with femoral popliteal occlusive disease status post right femoral to distal popliteal bypass with CryoVein -Patient is postop popliteal incision hematoma and occluded graft status post op en exploration popliteal incision and evacuation of hematoma, open thrombectomy of saphenous vein graft with control of hemorrhage of the saphenous vein, open exploration of the femoral incision; POD #1; patient remains on aspirin 81 mg daily, Pletal 100 mg twice daily and Plavix 75 mg daily -Vascular surgery recommending PT consult and increase activity; incentive spirometry -Winslow catheter in place and can be discontinued once activity is improved and patient is evaluated by PT 2. Acute blood loss anemia secondary to above; hemoglobin at 10.6 this morning; we will monitor H&H closely 3. Leukocytosis; possibly reactive; no signs of infection; we will monitor CBC, CRP and procalcitonin; obtain blood culture; make further recommendations accordingly 4. Acute kidney injury secondary to above; patient is currently on IV fluid hydration; monitor strict LUCIO's, daily weights, renal function electrolytes; avoid nephrotoxins and hypotension -Recommend nephrology consult 5. Persistent hyperkalemia; patient has been treated with hyperkalemia protocol; repeat potassium level remains persistently elevated -Hyperkalemia protocol in place; nephrology is consulted 6. Hypothyroidism; continue home dose of levothyroxine 7. Hyperlipidemia; Lipitor 80 mg p.o. nightly 8. Hypertension; antihypertensive therapy remains on hold given episodes of hypotension; blood pressure improved with IV fluid bolus; will monitor closely DVT prophylaxis; SCDs/Pletal/aspirin CODE STATUS; full code
[2024-08-23 09:00] LABS: HCT 22.3 % (34.0-46.0); MCH 30.3 pg (25.0-35.0); MCHC 31.5 g/dL (31.0-37.0); MCV 96.3 fL (80.0-100.0); Mean Platelet Volume 8.9; Platelet Count 279 k/uL (150-450); RBC 2.31 m/uL (3.80-5.40); RDW 15.7 % (11.5-15.5); WBC 15.9 k/uL (3.8-10.6)
[2024-08-23 09:18] LABS: African American GFR (CKD) 57 (>60 ml/min/1.73 sqM); Anion Gap 5 mmol/L; Blood Urea Nitrogen 23 mg/dL (7-17); Calcium 7.9 mg/dL (8.4-10.2); Carbon Dioxide 25 mmol/L (22-30); Chloride 99 mmol/L (98-107); Glucose 179 mg/dL (74-99); Magnesium 2.1 mg/dL (1.6-2.3); Non-African American GFR(CKD) 49 (>60 ml/min/1.73 sqM); Potassium 4.2 mmol/L (3.5-5.1); Sodium 129 mmol/L (137-145)
--- NOTE | 2024-08-23 10:09 | P.PN ---
Subjective Patient is seen in follow-up for acute kidney injury on chronic kidney disease. Renal function better. Oral intake is good. Nonoliguric. Vital signs are stable. General: No acute distress. HEENT: Head exam is unremarkable. LUNGS: No audible rhonchi or wheezes. HEART: Rate and Rhythm are regular. ABDOMEN: Nontender. EXTREMITITES: 1+ edema right lower extremity. Objective - Vital Signs Vital signs: Vital Signs Temp 98.2 F 08/23/24 03:26 Pulse 112 H 08/23/24 09:09 Resp 20 08/23/24 09:09 BP 101/58 08/23/24 09:09 Pulse Ox 96 08/23/24 09:09 FiO2 Intake & Output 08/22/24 08/23/24 08/23/24 18:59 06:59 18:59 Intake Total 454 118 Output Total 2100 1550 Balance -1646 -1550 118 Weight 92.5 kg Intake: Oral 454 118 Output: Urine 2100 1550 Other: Voiding Method Indwelling Catheter Indwelling Catheter # Bowel Movements 2 - Labs CBC & Chem 7: 08/23/24 08:30 08/23/24 08:30 Labs: Abnormal Lab Results - Last 24 Hours (Table) 08/23/24 08/23/24 Range/Units 08:30 08:30 WBC 15.9 H (3.8-10.6) k/uL RBC 2.31 L (3.80-5.40) m/uL Hgb 7.0 L (11.4-16.0) gm/dL Hct 22.3 L (34.0-46.0) % RDW 15.7 H (11.5-15.5) % Sodium 129 L (137-145) mmol/L BUN 23 H (7-17) mg/dL Creatinine 1.18 H (0.52-1.04) mg/dL Glucose 179 H (74-99) mg/dL Calcium 7.9 L (8.4-10.2) mg/dL Microbiology - Last 24 Hours (Table) 08/21/24 17:27 Blood Culture - Preliminary Blood Assessment and Plan Plan: Assessment: 1. Acute kidney injury secondary to ATN secondary to hypotension. Creatinine peaked at 2.03 this admission and is 1 improved to 1.18 today. No hydronephrosis noted on kidney ultrasound. Right kidney atrophic. 2. Chronic kidney disease stage IIIa with baseline creatinine near 1.2 secondary to nephrosclerosis. 3. Peripheral arterial disease status post right femoral to distal popliteal by pass August 20, 2024 with subsequent evacuation of hematoma. 4. Hyperkalemia secondary to acute kidney injury, acidosis and lisinopril. Improved with medical management. 5. Anemia secondary to hematoma. Rule out iron deficiency. 6. Metabolic acidosis secondary to acute kidney injury and IV fluids. Improved. Plan: Hep-Lock IV fluids. Continue to hold diuretics as well as lisinopril. Follow-up iron studies. Avoid nephrotoxins.
--- NOTE | 2024-08-23 10:16 | P.PN ---
Progress Note - Text Progress Note Date: 08/23/24 Patient doing well this morning but hemoglobin dropped again to 7. Vitals demonstrate tachycardia. Will transfuse 1 unit PRBC and recheck. Likely patient will require rehab facility.
--- NOTE | 2024-08-23 19:04 | P.PN ---
Subjective Progress Note Date: 08/23/24 63-year-old female, history of hypertension, hyperlipidemia, hypothyroidism, osteoarthritis, with severe lifestyle-limiting peripheral arterial disease. She previously underwent a left lower extremity femoral to tibial bypass and is here today for the same on her right lower extremity. Patient has had superficial femoral artery occlusive disease with previous left lower extremity bypass; admitted for elective popliteal, posterior tibial and tibial peroneal endarterectomy with patch angioplasty, right lower extremity femoral to below- knee popliteal bypass -Patient is POD #1 Blood work completed reveals a WBC of 17.9 which is down from 23.2 yesterday, hemoglobin of 10.6 and platelet count of 310, sodium 131, potassium 6.5, BUNs/creatinine of 48/2.08 and blood glucose of 138, magnesium 1.9 -Patient received treatment for hyperkalemia protocol; repeat potassium level trended down to 5.9 and is up at 6.4 again 08/23/2024 Patient is seen and evaluated in room at bedside; does not report any specific complaints Vital signs are reviewed stable with temperature of 98.6, pulse 107, respiration 18, blood pressure 126/75 O2 saturation 96% Lab review shows WBC of 15.9, hemoglobin of 7.0 with platelet count of 279, sodium 129, potassium 4.2, BUNs/creatinine of 23/1.17 Patient to receive 1 unit of packed RBCs; monitor hemoglobin Renal function is improving; nephrology on board; continue to hold diuretics and lisinopril Objective - Vital Signs Vital signs: Vital Signs Temp 98.2 F 08/23/24 03:26 Pulse 112 H 08/23/24 10:09 Resp 20 08/23/24 10:09 BP 101/58 08/23/24 09:09 Pulse Ox 96 08/23/24 09:09 FiO2 Intake & Output 08/22/24 08/23/24 08/23/24 18:59 06:59 18:59 Intake Total 454 118 Output Total 2100 1550 Balance -1646 -1550 118 Weight 92.5 kg Intake: Oral 454 118 Output: Urine 2100 1550 Other: Voiding Method Indwelling Catheter Indwelling Catheter Indwelling Catheter # Bowel Movements 2 - Exam General appearance: The patient is alert, oriented, appears in no acute distress. HET: Head is normocephalic and atraumatic. Pupils are equal and reactive. Neck: Supple. Heart: Regular. Lungs: Equal expansion, normal respiratory effort. Abdomen: Soft, nontender, nondistended. Extremities: Right groin with Prevena wound VAC in place with good suction. Right medial calf with Prevena wound VAC with good suction. Swelling of right lower extremity, however improved from yesterday and soft. Warm to the touch, foot warm to the touch with good capillary refill, sensorimotor intact. Audible PT and DP Doppler signal. Neurological: No focal deficits. Alert and oriented x 3 - Labs CBC & Chem 7: 08/23/24 08:30 08/23/24 08:30 Labs: Abnormal Lab Results - Last 24 Hours (Table) 08/23/24 08/23/24 Range/Units 08:30 08:30 WBC 15.9 H (3.8-10.6) k/uL RBC 2.31 L (3.80-5.40) m/uL Hgb 7.0 L (11.4-16.0) gm/dL Hct 22.3 L (34.0-46.0) % RDW 15.7 H (11.5-15.5) % Sodium 129 L (137-145) mmol/L BUN 23 H (7-17) mg/dL Creatinine 1.18 H (0.52-1.04) mg/dL Glucose 179 H (74-99) mg/dL Calcium 7.9 L (8.4-10.2) mg/dL Microbiology - Last 24 Hours (Table) 08/21/24 17:27 Blood Culture - Preliminary Blood Assessment and Plan Assessment: 1. Lifestyle limiting peripheral vascular disease with femoral popliteal occlusive disease status post right femoral to distal popliteal bypass with CryoVein -Patient is postop popliteal incision hematoma and occluded graft status post open exploration popliteal incision and evacuation of hematoma, open thrombectomy of saphenous vein graft with control of hemorrhage of the saphenous vein, open exploration of the femoral incision; POD #1; patient remains on aspirin 81 mg daily, Pletal 100 mg twice daily and Plavix 75 mg daily -Vascular surgery recommending PT consult and increase activity; incentive spirometry -Winslow catheter in place and can be discontinued once activity is improved and patient is evaluated by PT 2. Acute blood loss anemia secondary to above; hemoglobin at 10.6 this morning; we will monitor H&H closely 3. Leukocytosis; possibly reactive; no signs of infection; we will monitor CBC, CRP and procalcitonin; obtain blood culture; make further recommendations accordingly 4. Acute kidney injury secondary to above; patient is currently on IV fluid hydration; monitor strict LUCIO's, daily weights, renal function electrolytes; avoid nephrotoxins and hypotension -Recommend nephrology consult 5. Persistent hyperkalemia; patient has been treated with hyperkalemia protocol; repeat potassium level remains persistently elevated -Hyperkalemia protocol in place; nephrology is consulted 6. Hypothyroidism; continue home dose of levothyroxine 7. Hyperlipidemia; Lipitor 80 mg p.o. nightly 8. Hypertension; antihypertensive therapy remains on hold given episodes of hypotension; blood pressure improved with IV fluid bolus; will monitor closely DVT prophylaxis; SCDs/Pletal/aspirin CODE STATUS; full code
[2024-08-24 07:09] LABS: HCT 23.7 % (34.0-46.0); HGB 7.8 gm/dL (11.4-16.0); MCH 31.4 pg (25.0-35.0); MCHC 32.7 g/dL (31.0-37.0); MCV 95.9 fL (80.0-100.0); Mean Platelet Volume 8.4; Platelet Count 251 k/uL (150-450); RBC 2.47 m/uL (3.80-5.40); RDW 15.4 % (11.5-15.5); WBC 12.3 k/uL (3.8-10.6)
[2024-08-24] MEDS: GABAPENTIN 300 MG CAP PO SCH (09:16)
[2024-08-24 09:59] VITALS: TEMP 98.1
[2024-08-24 10:31] LABS: % Iron Saturation 7.05 (12.00-45.00)
[2024-08-24] MEDS: SODIUM FERRIC GLUCONAT-SUCROSE 125 MG in SODIUM CHLORIDE 0.9% 100 ML IVPB ONE (10:40)
--- NOTE | 2024-08-24 10:51 | P.DS ---
Providers Date of admission: 08/20/24 05:51 Attending physician: Elsa Brito DO Consults: 08/20/24 12:43 Consult Physician Routine Consulting Provider: Vikash Carter Consult Reason/Comments: Medical management Do you want consulting provider notified?: Yes 08/21/24 14:57 Consult Physician Routine Consulting Provider: Poncho Oleary Consult Reason/Comments: Hyperkalemia Do you want consulting provider notified?: Yes Primary care physician: [facility] Hospital Course: This 63-year-old female with severe lifestyle limiting peripheral arterial disease with femoral to popliteal occlusive disease was scheduled for right femoral to distal popliteal bypass with CryoVein. On postop day #0 patient has significant right calf swelling around surgical incision with eventual loss of PT signal. She was brought back that evening for open exploration of popliteal incision and evacuation of hematoma, open thrombectomy of saphenous vein graft with control of hemorrhage and open exploration femoral incision. She is now postop day #4. She had some acute on chronic kidney injury secondary to hypotension and acute blood loss anemia and lisinopril which has resolved. She had a 3 g drop in her hemoglobin and did receive 1 unit of blood yesterday with a repeat hemoglobin today of 7.8. She was initially seen by physical therapy on Saturday which was postop day #1 with very limited mobility secondary to pain. Through the weekend she has been up out of bed to the chair however not much further mobility. She maintained an indwelling Winslow catheter possibly secondary to nephrology recommendation. That is been discontinued this morning. Patient has been more active and mobility is improving. Patient to be reevaluated by physical therapy for recommendations of discharge plans. Patient at this time is declining subacute rehab and home health care. Walker has been ordered. Prevena wound vacs are in place to her right femoral incision as well as her right calf incision. Swelling is improved. She is still complaining of sharp pain/tingling in her right foot more so in her heel. Right lower extremity is warm to the touch, good capillary refill and PT and DP signal. She denies any shortness of breath, chest pain, abdominal pain, nausea or vomiting. No dizziness. She has been afebrile. Exam: General appearance: The patient is alert, oriented, appears in no acute distress. HET: Head is normocephalic and atraumatic. Neck: Supple. Heart: Regular. Lungs: Equal expansion, normal respiratory effort. Abdomen: Soft, nondistended. Extremities: Right groin with Prevena wound VAC in place with good suction. Left medial calf with wound VAC in place with good suction. Lower extremity swelling, soft. Warm to the touch, good capillary refill. PT and DP Doppler signal. Neurological: No focal deficits. Strength and sensation are grossly intact. Assessment 1. Lifestyle limiting peripheral vascular disease with femoral popliteal occlusive disease status post right femoral to distal popliteal bypass with CryoVein 2. Postop popliteal incision hematoma and occluded graft status post open exploration popliteal incision and evacuation of hematoma, open thrombectomy of saphenous vein graft with control of hemorrhage of the saphenous vein, open exploration of the femoral incision 3. Acute blood loss anemia secondary to above 4. Postop nausea and vomiting 5. Acute on chronic kidney injury secondary to above. Improved 6. Hyperkalemia, resolved 7. History of hyperlipidemia and hypertension 8. Hypothyroidism Plan 1. Encourage ambulation. Physical therapy to reevaluate patient. 2. Winslow catheter discontinued 3. Will give parental iron x 1 prior to discharge 4. Gabapentin ordered 5. Patient discharged home with walker 6. Plan for discharge this afternoon once seen by PT with recommendations and clearance from nephrology 7. Patient will need to follow-up with PCP this week 8. Follow-up with vascular surgeon as scheduled this week The impression and plan of care has been dictated as directed. I performed a history and examination of this patient, discussed the same with the dictator. I agree with the dictator's note ,documented as a scribe. Any additional findings or plans will be noted. Procedures: #1 Right femoral to distal popliteal bypass with CryoVein #2 open exploration of popliteal incision evacuation of hematoma open thrombectomy of saphenous vein graft control of hemorrhage - saphenous vein cadaver graft open exploration of femoral incision Patient Condition at Discharge: Stable Plan - Discharge Summary Discharge Rx Participant: No New Discharge Prescriptions: New Docusate [Colace] 100 mg PO DAILY cap HYDROcodone/APAP 5-325MG [[place] 5-325] 1 each PO Q4HR PRN 3 Days #18 tab PRN Reason: Pain Scale 6 To 7 Gabapentin [Neurontin] 300 mg PO BID #60 cap Continue Levothyroxine Sodium [Synthroid] 112 mcg PO DAILY Aspirin [Adult Low Dose Aspirin EC] 81 mg PO DAILY Dextroamphetamine/Amphetamine [Adderall] 30 mg PO DAILY Acetaminophen Tab [Tylenol] 650 mg PO Q6HR PRN PRN Reason: Pain cilostazoL [Pletal] 100 mg PO BID Atorvastatin [Lipitor] 80 mg PO HS Clopidogrel [Plavix] 75 mg PO DAILY #30 tab Discontinued Ibuprofen [Motrin Ib] 200 mg PO BID Lisinopril-Hctz 20-12.5 mg [Zestoretic 20-12.5] 1 tab PO DAILY Discharge Medication List Aspirin [Adult Low Dose Aspirin EC] 81 mg PO DAILY 10/02/23 [History] Levothyroxine Sodium [Synthroid] 112 mcg PO DAILY 10/02/23 [History] cilostazoL [Pletal] 100 mg PO BID 10/02/23 [History] Atorvastatin [Lipitor] 80 mg PO HS 10/29/23 [History] Dextroamphetamine/Amphetamine [Adderall] 30 mg PO DAILY 04/27/24 [History] Clopidogrel [Plavix] 75 mg PO DAILY #30 tab 05/01/24 [Rx] Acetaminophen Tab [Tylenol] 650 mg PO Q6HR PRN 08/18/24 [History] HYDROcodone/APAP 5-325MG [[place] 5-325] 1 each PO Q4HR PRN 3 Days #18 tab 08/21/24 [Rx] Docusate [Colace] 100 mg PO DAILY cap 08/24/24 [Rx] Gabapentin [Neurontin] 300 mg PO BID #60 cap 08/24/24 [Rx] Follow up Appointment(s)/Referral(s): Elsa Mello DO [STAFF PHYSICIAN] - 08/26/24 11:00 am Good Faith DO [Primary Care Provider] - 1 Week Activity/Diet/Wound Care/Special Instructions: No driving until cleared by surgeon. Avoid heavy lifting greater than 10 lbs , pushing, pulling, straining, flights of stairs until cleared by surgeon. Sponge bathe only until Michaela dressings removed. Then ok to shower tomorrow but no baths, pools, soaking in tubs to avoid risk of infection until cleared by surgeon. signs of infection ie: fever, rash, drainage from surgical site, swelling contact doctor or return to ER immediately. Heavy bleeding from surgical site apply firm direct pressure and return to ER. Do not attempt to drive self. low sodium/low fat diet Keep Prevena dressing in place to right groin and calf until 08/26/2024 Discharge/Stand Alone Forms: Who Do I Call? Discharge Disposition: HOME SELF-CARE
[2024-08-24 13:44] VITALS: BP 108/73; PULSE 109; RESP 18
--- NOTE | 2024-08-24 14:26 | P.PN ---
Subjective Patient is seen for follow-up for acute kidney injury and chronic kidney disease. Renal function has improved Serum creatinine down to 1.18 from yesterday. Potassium was 4.2 yesterday. Winslow catheter was removed today. Objective - Vital Signs Vital signs: Vital Signs Temp 98.1 F 08/24/24 09:10 Pulse 109 H 08/24/24 12:00 Resp 18 08/24/24 12:00 BP 108/73 08/24/24 12:00 Pulse Ox 100 08/24/24 12:00 FiO2 Intake & Output 08/23/24 08/24/24 08/24/24 18:59 06:59 18:59 Intake Total 546 Output Total 1775 1750 500 Balance -1229 -1750 -500 Weight 99 kg Intake: Oral 236 Blood Product 310 Rc As-1 Unit 310 [id number] Output: Urine 1775 1750 500 Uretheral (Winslow) 500 Other: Voiding Method Indwelling Catheter Indwelling Catheter Indwelling Catheter - Exam Patient is awake, comfortable, no acute distress Examination of the heart S1 and S2 Examination of the lungs bilateral breath sounds are heard Abdomen is soft nontender Examination of the lower extremity shows no significant edema - Labs CBC & Chem 7: 08/24/24 06:13 08/23/24 08:30 Labs: Abnormal Lab Results - Last 24 Hours (Table) 08/22/24 08/24/24 Range/Units 07:18 06:13 WBC 12.3 H (3.8-10.6) k/uL RBC 2.47 L (3.80-5.40) m/uL Hgb 7.8 L (11.4-16.0) gm/dL Hct 23.7 L (34.0-46.0) % Iron 21 L (50-170) UG/DL % Saturation 7.05 L (12.00-45.00) Microbiology - Last 24 Hours (Table) 08/21/24 17:27 Blood Culture - Preliminary Blood Assessment and Plan Assessment: 1. Acute kidney injury secondary to ATN secondary to hypotension. Creatinine peaked at 2.03 this admission and is 1 improved to 1.18 yesterday. No hydronephrosis noted on kidney ultrasound. Right kidney atrophic. 2. Chronic kidney disease stage IIIa with baseline creatinine near 1.2 secondary to nephrosclerosis. 3. Peripheral arterial disease status post right femoral to distal popliteal bypass August 20, 2024 with subsequent evacuation of hematoma. 4. Hyperkalemia secondary to acute kidney injury, acidosis and lisinopril. Improved with medical management. 5. Anemia secondary to hematoma. Rule out iron deficiency. 6. Metabolic acidosis secondary to acute kidney injury and IV fluids. Improved. Plan: Continue off of IV fluids Okay for discharge from nephrology standpoint. Repeat labs as outpatient. Diuretics remain on hold. Blood pressure remains on the lower side therefore RACHELE inhibitor's are on hold as well. Can resume as outpatient if blood pressure allows.
--- NOTE | 2024-08-25 05:10 | P.PN ---
Subjective 63-year-old female, history of hypertension, hyperlipidemia, hypothyroidism, osteoarthritis, with severe lifestyle-limiting peripheral arterial disease. She previously underwent a left lower extremity femoral to tibial bypass and is here today for the same on her right lower extremity. Patient has had superficial femoral artery occlusive disease with previous left lower extremity bypass; admitted for elective popliteal, posterior tibial and tibial peroneal endarterectomy with patch angioplasty, right lower extremity femoral to below- knee popliteal bypass -Patient is POD #1 Blood work completed reveals a WBC of 17.9 which is down from 23.2 yesterday, hemoglobin of 10.6 and platelet count of 310, sodium 131, potassium 6.5, BUNs/creatinine of 48/2.08 and blood glucose of 138, magnesium 1.9 -Patient received treatment for hyperkalemia protocol; repeat potassium level trended down to 5.9 and is up at 6.4 again 08/23/2024 Patient is seen and evaluated in room at bedside; does not report any specific complaints Vital signs are reviewed stable with temperature of 98.6, pulse 107, respiration 18, blood pressure 126/75 O2 saturation 96% Lab review shows WBC of 15.9, hemoglobin of 7.0 with platelet count of 279, sodium 129, potassium 4.2, BUNs/creatinine of 23/1.17 Patient to receive 1 unit of packed RBCs; monitor hemoglobin Renal function is improving; nephrology on board; continue to hold diuretics and lisinopril 08/24 Patient is awake and alert, she looks comfortable, right lower extremity is swollen with surgical wounds closed with dressing in place and wound VAC in place, pain controlled Patient expected and wants to be discharged home today. She states she has Winslow catheter and she wanted to be removed prior to discharge, hence Winslow catheter management is deferred to vascular surgery team and nephrology team. Looks like her hemoglobin stable At 7.8, leukocytosis trending down at 12.3. Sodium from yesterday 129, creatinine improved down to 1.1 Objective - Vital Signs Vital signs: Vital Signs Temp 98.1 F 08/24/24 09:10 Pulse 109 H 08/24/24 12:00 Resp 18 08/24/24 12:00 BP 108/73 08/24/24 12:00 Pulse Ox 100 08/24/24 12:00 FiO2 Intake & Output 08/23/24 08/24/24 08/24/24 18:59 06:59 18:59 Intake Total 546 Output Total 1775 1750 500 Balance -1229 1750 -500 Weight 99 kg Intake: Oral 236 Blood Product 310 Rc As-1 Unit 310 [id number] Output: Urine 1775 1750 500 Uretheral (Winslow) 500 Other: Voiding Method Indwelling Catheter Indwelling Catheter Indwelling Catheter # Voids 1 - Exam GENERAL: The patient is alert and oriented x3, not in any acute distress. Well developed, well nourished. HEENT: Pupils are round and equally reacting to light. EOMI. No scleral icterus. No conjunctival pallor. Normocephalic, atraumatic. No pharyngeal erythema. No thyromegaly. CARDIOVASCULAR: S1 and S2 present. No murmurs, rubs, or gallops. PULMONARY: Chest is clear to auscultation, no wheezing , no crackles. ABDOMEN: Soft, nontender, nondistended, normoactive bowel sounds. No palpable organomegaly. MUSCULOSKELETAL: No joint swelling or deformity. EXTREMITIES: No cyanosis, clubbing, or pedal edema. -Right lower extremity swelling, wound closed with dressing in place in the right calf and right groin with wound VAC in place NEUROLOGICAL: Gross neurological examination did not reveal any focal deficits. SKIN: No rashes. no petechiae. - Labs CBC & Chem 7: 08/24/24 06:13 08/23/24 08:30 Labs: Abnormal Lab Results - Last 24 Hours (Table) 08/22/24 08/24/24 Range/Units 07:18 06:13 WBC 12.3 H (3.8-10.6) k/uL RBC 2.47 L (3.80-5.40) m/uL Hgb 7.8 L (11.4-16.0) gm/dL Hct 23.7 L (34.0-46.0) % Iron 21 L (50-170) UG/DL % Saturation 7.05 L (12.00-45.00) Microbiology - Last 24 Hours (Table) 08/21/24 17:27 Blood Culture - Preliminary Blood Assessment and Plan Assessment: 1. Lifestyle limiting peripheral vascular disease with femoral popliteal occlusive disease status post right femoral to distal popliteal bypass with CryoVein -Patient is postop popliteal incision hematoma and occluded graft status post open exploration popliteal incision and evacuation of hematoma, open thrombectomy of saphenous vein graft with control of hemorrhage of the saphenous vein, open exploration of the femoral incision; POD #1; patient remains on aspirin 81 mg daily, Pletal 100 mg twice daily and Plavix 75 mg daily -Vascular surgery recommending PT consult and increase activity; incentive spirometry -Winslow catheter in place and management deferred to vascular surgery primary team and nephrology team 2. Acute blood loss anemia secondary to above; hemoglobin at 10.6 this morning; we will monitor H&H closely 3. Leukocytosis; possibly reactive; no signs of infection; we will monitor CBC, CRP and procalcitonin; obtain blood culture; make further recommendations accordingly 4. Acute kidney injury secondary to above; patient is currently on IV fluid hydration; monitor strict LUCIO's, daily weights, renal function electrolytes; avoid nephrotoxins and hypotension -Recommend nephrology consult 5. Persistent hyperkalemia; patient has been treated with hyperkalemia protocol; repeat potassium level remains persistently elevated -Hyperkalemia protocol in place; nephrology is consulted 6. Hypothyroidism; continue home dose of levothyroxine 7. Hyperlipidemia; Lipitor 80 mg p.o. nightly 8. Hypertension; antihypertensive therapy remains on hold given episodes of hypotension; blood pressure improved with IV fluid bolus; will monitor closely DVT prophylaxis; SCDs/Pletal/aspirin CODE STATUS; full code
--- NOTE | 2024-10-13 11:16 | CDI ---
Documentation Clarification Form Date: 10/13/2024 From: Kobe Rice Admit Date: 08/20/2024 05:51:00 AM Patient Name: Savannah Ospina Visit Number: [id number] Discharge Date: 08/24/2024 03:53:00 PM ATTENTION: The Clinical Documentation Specialists (CDI) and [facility] Coding Staff appreciate your assistance in clarifying documentation. Please respond to the clarification below the line at the bottom and electronically sign. The CDI & [facility] [employer] Coding staff will review the response and follow-up if needed. Please note: Queries are made part of the Legal Health Record. If you have any questions, please contact the author of this message via ITS. Metabolic acidosis is documented per the 08/22 Nephrology note. For each diagnosis, documentation must be clear to determine if the condition was present at the time of the patients inpatient admission or developed during the hospital stay. Additional clarification regarding the Metabolic acidosis is requested. History/Risk Factors: 63-year-old female with lifestyle limiting claudication worse in her right leg. Initial attempts were made for endovascular revascularization were unsuccessful therefore a bypass was recommended. Clinical Indicators: 08/22 Nephrology consult: Metabolic acidosis secondary to acute kidney injury and IV fluids. Improved. 08/23-08/24 Nephrology notes: Metabolic acidosis secondary to acute kidney injury and IV fluids. Improved. 08/20 Lab Data per EMR: Sodium > 138 mEq/L Chloride > 106 mEq/L Bicarbonate > 20 mEq/L Treatment: IV Fluids 75 ml/hr (08/21-08/23), 0.9% NS 1000 ml Bolus (08/21), Sodium Bicarb IV (08/21). Definition of Present on Admission (POA): A diagnosis present at the time the order for admission to inpatient status was written. Please clarify if the Metabolic acidosis was POA: [x ] Y = Yes, the condition was present at the time of the order for inpatient admission. [ ] N = No, the condition was not present at the time of the order for inpatient admission. [ ] W = Clinically undetermined if the condition was present at the time of the order for inpatient admission. (Template Last Revised: August 2020) MTDD
== END 2024-08-24 15:53 | disposition home or self-care (01) | DRG 252 ==
LOC: 2ORMAIN 05:51 → 3SCARD 13:04
PROVIDERS: ADMIT Surgery; ATTEND Surgery
PROC: 061M0JY Bypass Right Femoral Vein to Lower Vein with Synthetic Substitute, Open Approach (ICD-10-PCS; 2024-08-20)
PROC: 04CM0ZZ Extirpation of Matter from Right Popliteal Artery, Open Approach (ICD-10-PCS; 2024-08-20)
PROC: 04U Lower Arteries, Supplement (ICD-10-PCS; 2024-08-20)
PROC: 3E06317 Introduction of Other Thrombolytic into Central Artery, Percutaneous Approach (ICD-10-PCS; 2024-08-20)
PROC: 0Y970ZZ Drainage of Right Femoral Region, Open Approach (ICD-10-PCS; 2024-08-20)
PROC: 04CP0ZZ Extirpation of Matter from Right Anterior Tibial Artery, Open Approach (ICD-10-PCS; principal; 2024-08-20 07:30)
DX: I70.213 Atherosclerosis of native arteries of extremities with intermittent claudication, bilateral legs (principal); N17.0 Acute kidney failure with tubular necrosis; E87.20 Acidosis, unspecified; N18.31 Chronic kidney disease, stage 3a; I12.9 Hypertensive chronic kidney disease with stage 1 through stage 4 chronic kidney disease, or unspecified chronic kidney disease; E03.9 Hypothyroidism, unspecified; Z95.820 Peripheral vascular angioplasty status with implants and grafts; L76.32 Postprocedural hematoma of skin and subcutaneous tissue following other procedure; D62 Acute posthemorrhagic anemia; I95.9 Hypotension, unspecified; E87.5 Hyperkalemia; D72.828 Other elevated white blood cell count; E78.5 Hyperlipidemia, unspecified; Y83.2 Surgical operation with anastomosis, bypass or graft as the cause of abnormal reaction of the patient, or of later complication, without mention of misadventure at the time of the procedure; Z87.891 Personal history of nicotine dependence; Z82.49 Family history of ischemic heart disease and other diseases of the circulatory system; Z79.82 Long term (current) use of aspirin; Z79.890 Hormone replacement therapy; Z79.02 Long term (current) use of antithrombotics/antiplatelets; Z79.899 Other long term (current) drug therapy; Z79.1 Long term (current) use of non-steroidal anti-inflammatories (NSAID)
CPT/HCPCS: 76770; 80048; 82728; 83540; 83550; 83735; 84132; 84145; 85025; 85027; 85610; 86140; 86850; 86900; 86901; 86920; 87040; 88304; 88311

== ENCOUNTER → 2024-11-26 | Outpatient (CLI) | payer BC ==
[2024-11-26 10:11] LABS: HCT 37.6 % (37.2-46.3); HGB 11.8 g/dL (12.0-15.0); MCH 29.8 pg (27.0-32.0); MCHC 31.4 g/dL (32.0-37.0); MCV 94.9 FL (80.0-97.0); Mean Platelet Volume 10.8 FL (9.5-12.2); NRBC Per 100 WBC 0 X 10*3/uL (0.00-0.01); Platelet Count 286 X 10*3/uL (140-440); RBC 3.96 X 10*6/uL (4.10-5.20); RDW 14.4 % (11.5-14.5); WBC 5.83 X 10*3/uL (4.50-10.00)
[2024-11-26 10:50] LABS: ALT 20 U/L (8-44); AST 21 U/L (13-35); Albumin 4.5 g/dL (3.8-4.9); Alkaline Phosphatase 127 U/L (41-126); BUN/Creat Ratio 20.69 Ratio (12.00-20.00); Blood Urea Nitrogen 33.1 mg/dL (9.0-27.0); Calcium 9.3 mg/dL (8.7-10.3); Carbon Dioxide 17.9 mmol/L (21.6-31.8); Chloride 108 mmol/L (96-109); Chol/HDL Ratio 3.14 Ratio; Globulin 1.8 g/dL (1.6-3.3); Glucose 101 mg/dL (70-110); LDL Cholesterol,Calculated 66.5 mg/dL (0.0-131.0); Potassium 5.1 mmol/L (3.5-5.5); Sodium 140 mmol/L (135-145); Total Bilirubin 0.3 mg/dL (0.3-1.2); Total Protein 6.3 g/dL (6.2-8.2)
== END | disposition home or self-care (01) ==
LOC: LABWHC1 07:03
PROVIDERS: ATTEND Family Medicine
DX: Z00.00 Encounter for general adult medical examination without abnormal findings (principal); E55.9 Vitamin D deficiency, unspecified; E03.9 Hypothyroidism, unspecified; E78.5 Hyperlipidemia, unspecified
CPT/HCPCS: 36415; 80053; 80061; 82306; 83036; 84439; 84443; 85027